=== PATIENT | female | born 1955 | race Caucasian/White ===

== ENCOUNTER 2017-05-21 12:53 | Emergency (ER) | payer BC ==
[2017-05-21] MEDS ORDERED: Rabies Immune Globulin 10 ML* 150 UNIT/ML VIAL IM ONE (13:59)
[2017-05-21] MEDS ORDERED: Rabies Vaccine, PCEC INJ* 1 ml IM ONE (14:07)
[2017-05-21 14:32] VITALS: BP 120/71
--- NOTE | 2017-05-21 14:32 | UC ---
Bite Injury/Animal HPI - HPI Summary HPI Summary: Found bat in bedroom 2 nights ago, did not catch it. No wounds or bites to pt's knowledge. here for rabies prophylaxis per [facility]. - History of Current Complaint Chief Complaint: UCGeneralIllness Stated Complaint: RABIES VACC Time Seen by Provider: 05/21/17 13:58 Hx Obtained From: Patient ?: No Severity Currently: None Pain Intensity: 0 Onset/Duration: Resolved Type of Bite: Wild Animal Has Animal Been Immunized?: N/A Aggravating Factor(s): Nothing Alleviating Factor(s): Nothing Associated Signs And Symptoms: Positive: Negative Animal Available for Observation: No Animal Control Notified: Yes - Allergies/Home Medications Allergies/Adverse Reactions: Allergies Allergy/AdvReac Type Severity Reaction Status Date / Time Iodinated Diagnostic Agents Allergy Intermediate Vomiting Verified 03/03/17 08: 38 Shellfish Allergy Allergy Intermediate Eyes Verified 03/03/17 08:38 Itchy/Swollen/Red/Watery PMH/Surg Hx/FS Hx/Imm Hx Endocrine History: Diabetes Other Cancer History: pancreatic - Surgical History Surgical History: Yes Surgery Procedure, Year, and Place: ERCP WITH STENTING 12/23/14 @ [facility] [place]. POWER PORT 02/2015 @ [facility] [place]. 10/29/2015 Melo CAMERON @ [facility]; Colonscopies 2X, polyps removal on the first colonoscopy done 03/2013 where patient experienced bleeding 18 days later, procedure done with a titanium clip which was removed. - Social History Alcohol Use: None Substance Use Type: None Smoking Status (MU): Never Smoked Tobacco Have You Smoked in the Last Year: No - Immunization History Most Recent Influenza Vaccination: 2013 Most Recent Tetanus Shot: 2011 Most Recent Pneumonia Vaccination: 2012 Review of Systems Constitutional: Negative Skin: Negative Eyes: Negative ENT: Negative Respiratory: Negative Cardiovascular: Negative Gastrointestinal: Negative Genitourinary: Negative Motor: Negative Neurovascular: Negative Musculoskeletal: Negative Neurological: Negative Psychological: Negative All Other Systems Reviewed And Are Negative: Yes Physical Exam Triage Information Reviewed: Yes Appearance: Well-Appearing, No Pain Distress, Well-Nourished Vital Signs: Initial Vital Signs Temp 97.6 F 05/21/17 12:59 Pulse 77 05/21/17 12:59 Resp 16 05/21/17 12:59 BP 129/67 05/21/17 12:59 Pulse Ox 99 08/04/17 12:59 Vital Signs Reviewed: Yes Eye Exam: Normal Eyes: Positive: Conjunctiva Clear ENT Exam: Normal ENT: Positive: Normal ENT inspection, Hearing grossly normal, Pharynx normal, TMs normal Dental Exam: Normal Neck exam: Normal Neck: Positive: Supple, Nontender, No Lymphadenopathy Respiratory Exam: Normal Respiratory: Positive: Chest non-tender, Lungs clear, Normal breath sounds, No respiratory distress, No accessory muscle use Cardiovascular Exam: Normal Cardiovascular: Positive: RRR, No Murmur Musculoskeletal Exam: Normal Neurological Exam: Normal Psychological Exam: Normal Bite Injury Course/Dx - Differential Dx/Diagnosis Provider Diagnoses: rabies exposure. rabies prophylaxis Discharge - Discharge Plan Condition: Stable Disposition: HOME Patient Education Materials: Rabies Vaccine (ED), Rabies (ED) Referrals: Aleksandra Decker MD [Primary Care Provider] - Additional Instructions: Please follow up with the [facility] Department for further rabies vaccines.
== END 2017-05-21 14:33 | disposition home or self-care (01) ==
LOC: UCEAST 12:53
DX: Z20.3 Contact with and (suspected) exposure to rabies (principal); Z23 Encounter for immunization; E11.9 Type 2 diabetes mellitus without complications; Z85.07 Personal history of malignant neoplasm of pancreas
CPT/HCPCS: 90375; 90471; 90675; 96372; 99211; G0463

== ENCOUNTER 2017-06-19 19:06 | Observation (INO) | payer BC ==
[2017-06-19] MEDS ORDERED: NS 0.9% 1000 ML* 1,000 ML IV ONE (19:36)
[2017-06-19] MEDS ORDERED: Metoclopramide IV* 5 MG/ML 2 ML VIAL IV ONE (19:36)
[2017-06-19 20:01] LABS: Hematocrit 34 % (35-47); Hemoglobin 11.7 g/dl (12.0-16.0); Mean Corpuscular HGB Conc 35 g/dl (31-36); Mean Corpuscular Hemoglobin 30 pg (27-31); Mean Corpuscular Volume 87 fL (80-97); Mean Platelet Volume 7 um3 (7.4-10.4); Red Blood Count 3.85 10^6/ul (4.0-5.4); Red Cell Distribution Width 16 % (10.5-15); White Blood Count 3.9 10^3/ul (3.5-10.8)
[2017-06-19 20:13] LABS: ALT 23 U/L (7-52); AST 21 U/L (13-39); Albumin 3.6 g/dL (3.2-5.2); Alkaline Phosphatase 53 U/L (34-104); Anion Gap 11 mmol/L (2-11); BUN/Creatinine Ratio 16.5 (8-20); Blood Urea Nitrogen 14 mg/dL (6-24); C Reactive Protein < 1.00 mg/L (< 5.00); CO2 Carbon Dioxide 25 mmol/L (22-32); Calcium 8.8 mg/dL (8.6-10.3); Chloride 95 mmol/L (101-111); EGFR African American 87.7 (>60); EGFR Non-African American 68.2 (>60); Globulin 2.7 g/dL (2-4); Glucose 210 mg/dL (70-100); Lipase < 10 U/L (11.0-82.0); Magnesium 1.5 mg/dL (1.9-2.7); Potassium 3.3 mmol/L (3.5-5.0); Sodium 131 mmol/L (133-145); Total Protein 6.3 g/dL (6.4-8.9)
--- NOTE | 2017-06-19 21:30 | ED ---
Bryan Mcduffie Rebecca, scribed for Boris Sheldon MD on 06/19/17 at 1935 . Complex/Multi-Sys Presentation - HPI Summary HPI Summary: Pt is a 61 y/o F who presents to ED c/o N/V. Nausea has been present all day with the vomiting beginning at 1400. Sx treated with Compazine, Zofran, Lorazepam and a Scopolamine patch ENTRY MANAGER, which have not changed sx. Additionally c /o chills. Denies fever. Pt is undergoing chemotherapy Tx for Pancreatic CA with the last treatment being on 06/16/2017. Oncologist is Dr. Dodge. Reports that she has had prior, similar reactions to chemo Tx. - History Of Current Complaint Chief Complaint: EDNauseaVomitDiarrh Time Seen by Provider: 06/19/17 19:24 Hx Obtained From: Patient Onset/Duration: Still Present Severity Currently: None Location: Negative Associated Signs And Symptoms: Positive: Nausea, Vomiting, Other - Chills. Negative: Fever Related History: Similar Episode/Diagnosed As: - Similar to previous reactions from chemotharpy - Allergies/Home Medications Allergies/Adverse Reactions: Allergies Allergy/AdvReac Type Severity Reaction Status Date / Time Iodinated Diagnostic Agents Allergy Intermediate Vomiting Verified 06/19/17 19: 21 Shellfish Allergy Allergy Intermediate Eyes Verified 06/19/17 19:21 Itchy/Swollen/Red/Watery PMH/Surg Hx/FS Hx/Imm Hx Endocrine/Hematology History: Reports: Hx Diabetes - type 1 Cardiovascular History: Reports: Other Cardiovascular Problems/Disorders - port for pancreatic cancer Denies: Hx Congestive Heart Failure, Hx Hypertension, Hx Pacemaker/ICD GI History: Reports: Hx Diverticulosis, Hx Gastroesophageal Reflux Disease, Hx Gastrointestinal Bleed, Hx Jaundice, Other GI Disorders - COLONOSCOPY 02/2013 WITH BENIGN GROWTHS REMOVED History: Denies: Hx Dialysis, Hx Renal Disease Musculoskeletal History: Denies: Hx Rheumatoid Arthritis, Hx Osteoporosis Sensory History: Reports: Hx Contacts or Glasses Denies: Hx Hearing Aid Opthamlomology History: Reports: Hx Contacts or Glasses Psychiatric History: Denies: Hx Panic Disorder - Cancer History Cancer Type, Location and Year: pancreatic 2015; Hx Chemotherapy: Yes - last 04/26/15 Hx Radiation Therapy: No - Surgical History Surgery Procedure, Year, and Place: [place] [facility] [place] [facility] [place] Melo CAMERON @ [facility]; Colonscopies 2X, polyps removal on the first colonoscopy done 03/2013 where patient experienced bleeding 18 days later, procedure done with a titanium clip which was removed. - Immunization History Date of Tetanus Vaccine: unknown Infectious Disease History: Denies: Hx Clostridium Difficile, Hx Hepatitis, Hx Human Immunodeficiency Virus (HIV), Hx of Known/Suspected MRSA, Hx Shingles, Hx Tuberculosis, Hx Known/ Suspected VRE, Hx Known/Suspected VRSA, History Other Infectious Disease, Traveled Outside the [place] in Last 30 Days - Family History Known Family History: Positive: Diabetes, Other - CHF - Social History Alcohol Use: None Substance Use Type: Reports: None Smoking Status (MU): Never Smoked Tobacco Have You Smoked in the Last Year: No Review of Systems Positive: Chills. Negative: Fever Positive: Vomiting, Nausea All Other Systems Reviewed And Are Negative: Yes Physical Exam Triage Information Reviewed: Yes Vital Signs On Initial Exam: Initial Vitals Temp Pulse Resp BP Pulse Ox 97.3 F 81 16 184/90 100 06/19/17 19:15 06/19/17 19:15 06/19/17 19:15 06/19/17 19:15 06/19/17 19:15 Vital Signs Reviewed: Yes Appearance: Positive: No Pain Distress, Ill-Appearing Skin: Positive: Warm Head/Face: Positive: Normal Head/Face Inspection Eyes: Positive: STELLA ENT: Positive: Hearing grossly normal Neck: Positive: Supple Respiratory/Lung Sounds: Positive: Clear to Auscultation, Breath Sounds Present Cardiovascular: Positive: RRR Abdomen Description: Positive: Nontender, Soft Bowel Sounds: Positive: Present Musculoskeletal: Positive: Strength/ROM Intact Neurological: Positive: Alert, Oriented to Person Place, Time Psychiatric: Positive: Affect/Mood Appropriate Diagnostics - Vital Signs Vital Signs Temp Pulse Resp BP Pulse Ox 06/19/17 19:15 97.3 F 81 16 184/90 100 - Laboratory Result Diagrams: 06/19/17 19:43 06/19/17 19:43 Lab Statement: Any lab studies that have been ordered have been reviewed, and results considered in the medical decision making process. Re-Evaluation - Re-Evaluation First Eval Re-Evaluation Time: 21:31 Change: Improved Comment: minimally improved but still with nausea and vomit, will admit, case d/ w hospitalist Complex Multi-Symp Course/Dx Assessment/Plan: Pt is a 61 y/o F who presents to ED c/o N/V. Nausea has been present all day with the vomiting beginning at 1400. Sx treated with Compazine, Zofran, Lorazepam and a Scopolamine patch ENTRY MANAGER, which have not changed sx. Additionally c/o chills. Denies fever. Pt is undergoing chemotherapy Tx for Pancreatic CA with the last treatment being on 06/16/2017. Oncologist is Dr. Dodge. Reports that she has had prior, similar reactions to chemo Tx. In the ED course, pt received magnesium sulfate, reglan and fluids. Discussed care of pt with Dr. Lim who accepts pt for admission. Pt will be admitted with Dx of intractable N/V with pancreatic CA. She understands and agrees. Elevated BP noted and advised to f/u with PCP. - Diagnoses Provider Diagnoses: intractable N/V , intractable N/V with pancreatic CA - Physician Notifications Discussed Care Of Patient With: Grupo Lim Time Discussed With Above Provider: 20:09 Instructed by Provider To: Admit As Inpatient - Accepts pt for admission. Discharge - Discharge Plan Condition: Fair Disposition: ADMITTED TO [facility] The documentation as recorded by the Bryan hopper Rebecca accurately reflects the service I personally performed and the decisions made by me, Boris Sheldon MD.
[2017-06-19] MEDS ORDERED: Magnesium Sulfate 1 GM IV* 1 GM/100 ML BAG IV ONE (21:32)
[2017-06-19] MEDS ORDERED: Magnesium Sulfate 2 GM IV* 2 GM/50 ML BAG IVPB ONE (22:35)
[2017-06-19] MEDS ORDERED: Metoclopramide IV* 5 MG/ML 2 ML VIAL IV SLOW PU PRN (22:37)
[2017-06-19] MEDS ORDERED: Ondansetron INJ* 2 MG/ML VIAL IV PRN (22:37)
[2017-06-19] MEDS ORDERED: LORazepam INJ* 2 MG/ML 1 ML VIAL IV PUSH PRN (22:38)
[2017-06-19] MEDS ORDERED: Enoxaparin(*) 40 MG/0.4 ML SYR SUBCUT SCH (23:00)
[2017-06-19] MEDS ORDERED: Dextrose 50% Syringe 50 ML* 25 GM/50 ML SYRINGE IV PUSH PRN (23:25)
[2017-06-19] MEDS ORDERED: Insulin GLARGINE(*) 1 UNITS UNIT SUBCUT SCH (23:45)
[2017-06-20] MEDS: Magnesium Oxide TAB* 400 MG PO SCH ×2 (00:55→08:22)
[2017-06-20] MEDS: amLODIPine TAB* 5 MG PO SCH ×2 (00:55→08:23)
[2017-06-20] MEDS: Insulin LISPRO* 1 UNITS UNIT SUBCUT SCH ×3 (01:32→12:04)
[2017-06-20] MEDS: NS 0.9% w/ 20 Meq KCL 1000 ML* 1,000 ML IV SCH ×2 (02:06→10:54)
[2017-06-20 02:20] LABS: Urine Bacteria Absent (Absent); Urine Bilirubin Negative (Negative); Urine Glucose 3+(>=500 mg/dL) (Negative); Urine Nitrite Negative (Negative)
--- NOTE | 2017-06-20 05:27 | HP ---
CC: Dr. Decker; Dr. Dodge ADMISSION HISTORY AND PHYSICAL: DATE OF ADMISSION: 06/19/17 CHIEF COMPLAINT: Vomiting. HISTORY OF PRESENT ILLNESS: Ms. Weaver is a 61-year-old woman with history of pancreatic cancer , who started her 4th cycle of chemotherapy on Wednesday through Wednesday of this week. She began vom iting around 2 p.m. this afternoon after having nausea all day. The patient took all of the antieme tics she had at home including Zofran and Ativan without success and presents [facility] the [facility] with intractable vomiting. The patient denies any abdominal pain or diarrhea. She denies any fever. She states she has had varying degrees of nausea and vomiting after other cycles of this ch emotherapy. The patient was initially diagnosed with pancreatic cancer in December 2014. She had neoadjuvant chemo therapy, followed by radiation in July 2015, followed by Whipple procedure in October of 2015. S he appeared to be in remission throughout 2016, but then admitted in 2016, has had a single metastas is found in her liver. She is now on the 4th cycle of chemotherapy, fosaprepitant along with 5-FU. PAST MEDICAL HISTORY: Includes hypertension, hyperlipidemia, type 2 diabetes, history of GI bleed a fter a colonoscopy, and pancreatic cancer as above. PAST SURGICAL HISTORY: Whipple procedure October 2015 and port placement in the subclavian. MEDICATIONS ON ADMISSION: 1. Lantus 20 units subcutaneous q. day. 2. NovoLog adjusted for carb counting q.a.c. 3. Lisinopril 40 mg p.o. q. day. 4. Toprol-XL 75 mg p.o. q. day. 5. Amlodipine 10 mg p.o. q. day. 6. Scopolamine patch as needed for nausea. 7. Aspirin 81 mg p.o. q. day. 8. Creon 2400 units a.c. as needed. 9. Magnesium oxide 250 mg p.o. b.i.d. 10. Potassium chloride 20 mEq p.o. b.i.d. ALLERGIES: CT CONTRAST and also SHELLFISH. FAMILY HISTORY: Notable for father of perforated ulcer. Brother of complications of diab etes potentially. Mother of heart disease. Sister of sudden , unknown cause. 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 She has no childre n. She has a healthcare proxy. She has a friend, Livier, with her today. Never smoked. No alcoho l or drug use. REVIEW OF SYSTEMS: The patient denies any fevers, but does have some anorexia. The patient denies a ny chest pain or palpitations. The patient denies any cough, no shortness of breath. Remainder of her 14-point review of systems is negative other than that mentioned in the HPI. PHYSICAL EXAMINATION GENERAL: She is a middle-aged woman, in no acute distress. VITAL SIGNS: Temperature is 36.9, pulse 87, respirations 18, blood pressure is 159/85, O2 sat is 95 %. HEENT: Head is normocephalic, atraumatic. She has alopecia. Pupils are equal, round, and reactive to light and accommodation. Oropharynx is moist, no lesions. NECK: No JVD. No carotid bruit. No thyromegaly. No cervical or axillary adenopathy. LUNGS: Clear to auscultation and percussion bilaterally. HEART: Regular rate and rhythm without murmurs or gallops. ABDOMEN: Soft, nontender. Positive bowel sounds. No hepatosplenomegaly. EXTREMITIES: No peripheral edema. Dorsalis pedis pulses are 1+ bilaterally. NEUROLOGIC: Cranial nerves II through XII are intact. Motor strength is 5/5 throughout. Deep ten don reflexes are symmetric. DIAGNOSTIC STUDIES/LAB DATA: Sodium 131, potassium 3.3, chloride 95, bicarb 25, BUN 14, creatinine 0.85, glucose 210, calcium 8.8, magnesium 1.5, albumin 3.6. AST 21, ALT 23, bilirubin 0.8. Lipase is less than 10. CRP less than 1. White count 3.9, hemoglobin 11.7, hematocrit 34%, platelets 215 . KUB and upright abdomen is normal. Nonobstructive bowel gas pattern. ASSESSMENT AND PLAN: A 61-year-old woman presenting with pancreatic cancer, on active chemotherapy, now with intractable vomiting. The patient will be admitted to observation overnight and treated with antiemetics and fluids. She can have pain control; she does not need at this time. We can discuss the case with Dr. Gamez in the morning. For diabetes, given that she is not taking p.o., I will give her half dose of her normal Lantus and give her small amounts of Humalog if needed. For hypertension, we will continue her outpatient regimen. She does not appear to be dangerously de hydrated. For her low potassium and magnesium, we will continue her oral supplements and give IV supplements a s well. Recheck this in the morning. Code status is full. DVT prophylaxis will be Lovenox. She is at a high risk due to her cancer and her age. [id number]/[facility] #: [id number]
[2017-06-20 06:22] LABS: Calcium 7.9 mg/dL (8.6-10.3); EGFR African American 101.4 (>60); EGFR Non-African American 78.8 (>60); Magnesium 2.7 mg/dL (1.9-2.7); Potassium 3.3 mmol/L (3.5-5.0)
--- NOTE | 2017-06-20 07:20 | RAD ---
INDICATION: Vomiting evaluate for obstruction. COMPARISON: Comparison is made with a prior KUB study from July 11, 2015 and a prior PET/CT study from March 29, 2017. TECHNIQUE: Supine and upright views of the abdomen were obtained. FINDINGS: The small bowel and colon appear nondistended. No free intraperitoneal air is seen. There is a moderate amount of retained stool present throughout the colon. There is a biliary stent catheter which projects in the right upper quadrant IMPRESSION: NO EVIDENCE FOR ACUTE FINDING.
[2017-06-20] MEDS ORDERED: KCL 20 MEQ/100 ML IVPREMIX* 20 MEQ/100 ML BAG IV ONE ×2 (07:25→08:21)
[2017-06-20] MEDS ORDERED: Lisinopril TAB* 10 MG PO SCH (09:00)
[2017-06-20] MEDS ORDERED: Potassium Chlor TAB* 20 MEQ TAB.ER PO SCH (09:00)
[2017-06-20] MEDS ORDERED: Metoprolol Succinate XL TAB* 25 MG PO SCH (09:00)
[2017-06-20] MEDS ORDERED: Aspirin EC Low Dose* 81 MG TAB.EC PO SCH (09:00)
--- NOTE | 2017-06-20 09:12 | DS ---
- Discharge Summary ADMIT DATE: 06/19/2017 DISCHARGE DATE: 06/20/2017 DISCHARGE DIAGNOSIS: 1. chemotherapy induced nausea and vomiting 2. hypokalemia related to above 3. recurrent pancreatic cancer DISCHARGE MEDS: Home Medications Medication Instructions Recorded Confirmed Type Lactobacillus [Probiotic] 1 cap PO DAILY 04/05/13 06/20/17 History Aspirin [Aspirin 81] 81 mg PO DAILY 03/29/14 06/20/17 History Lisinopril TAB* [Prinivil TAB 10 20 mg PO QAM 01/02/15 06/20/17 History MG*] Metoprolol Succinate XL TAB* 50 mg PO QAM 01/02/15 06/20/17 History [Toprol XL TAB*] amLODIPine TAB* [Norvasc 5 mg TAB*] 10 mg PO QAM 01/02/15 06/20/17 History Calcium + D3 600-200 mg-Unit 1 tab PO BID 12/16/15 06/20/17 History Creon (NF) 1 cap PO TID PRN 12/16/15 06/20/17 History Magnesium 250 mg PO DAILY 12/16/15 06/20/17 History Cholecalciferol [Vitamin D3] 1,000 unit PO BID 03/01/17 06/20/17 History Insulin Aspart [Novolog] 1 inj SUBCUT SEE INSTRUCTIONS 03/01/17 06/20/17 History Insulin GLARGINE(*) [Lantus(*)] 20 units SUBCUT QPM 03/01/17 06/20/17 History Metoprolol Succinate XL TAB* 25 mg PO BEDTIME 03/01/17 06/20/17 History [Toprol XL TAB*] Red Yeast Rice Extract [Red Yeast 800 mg PO DAILY 03/01/17 06/20/17 History Rice] LORazepam TAB(*) [Ativan 0.5 MG 1 tab PO Q6HR PRN 06/20/17 06/20/17 History TAB (*)] OLANzapine TAB* [Zyprexa 5 MG TAB*] 5 mg PO DAILY 06/20/17 06/20/17 History Ondansetron ODT TAB* [Zofran 4 MG 4 mg PO Q6H PRN 06/20/17 06/20/17 History Odt TAB*] Potassium Chlor TAB* [Potassium 20 meq PO BID tab.er 06/20/17 Rx Chlor TAB 20 MEQ*] Scopolamine 1.5 mg* PATCH* 1 patch TOPICAL Q72HR 06/20/17 06/20/17 History [Transderm-Scop 1.5 mg Patch*] INCREASED DOSE OF POTASSIUM DISCHARGE FOLLOW UP: 1. [facility] 06/22 1 pm hydration and labs 2. [facility] 06/25 at 12:20 Dr. Dodge HOSPITAL COURSE: see full admit h+P. vomiting resolved completely with hydration and iv antiemetics. tolerated breakfast well. will be discharged home to wednesday for hydration and electrolyte check at the [facility], and Dr. Dodge on Wednesday at 12:20 pm.
[2017-06-20] MEDS ORDERED: Loperamide CAP* 2 MG PO PRN (09:34)
[2017-06-20 12:04] VITALS: BP 94/55
== END 2017-06-20 13:10 | disposition home or self-care (01) ==
LOC: ED 19:06 → MED 22:34
PROVIDERS: ADMIT Internal Medicine; ATTEND Hospitalist
DX: R11.2 Nausea with vomiting, unspecified (principal); E87.6 Hypokalemia; C25.9 Malignant neoplasm of pancreas, unspecified; Z79.899 Other long term (current) drug therapy
CPT/HCPCS: 36415; 74020; 80048; 80053; 81003; 81015; 83036; 83605; 83690; 83735; 85025; 86140; 96361; 96365; 96366; 96372; 96375; 99217; 99284; A9270-GY; G0378; J1642; J1650; J2405; J2765; J3475; J3480

== ENCOUNTER 2018-05-21 08:00 | Emergency (ER) | payer BC ==
[2018-05-21] MEDS ORDERED: Ondansetron INJ* 2 MG/ML VIAL IV ONE (08:14)
[2018-05-21] MEDS ORDERED: NS 0.9% 1000 ML* 1,000 ML IV ONE ×2 (08:14→09:57)
[2018-05-21 08:57] LABS: ABS Basophils 0 10^3/ul (0-0.2); ABS Eosinophils 0 10^3/ul (0-0.6); ABS Monocytes 0.7 10^3/ul (0-0.8); ABS Nucleated RBC 0 10^3/ul; Eosinophil % 0 % (0-6); Hematocrit 35 % (35-47); Hemoglobin 11.5 g/dl (12.0-16.0); Lymphocyte % 6.5 % (25-47); Mean Corpuscular HGB Conc 33 g/dl (31-36); Mean Corpuscular Hemoglobin 24 pg (27-31); Mean Corpuscular Volume 74 fL (80-97); Mean Platelet Volume 7.6 um3 (7.4-10.4); Nucleated Red Blood Cells % 0; Platelet Count 261 10^3/ul (150-450); Red Blood Count 4.77 10^6/ul (4.00-5.40); Red Cell Distribution Width 19 % (10.5-15); White Blood Count 15.7 10^3/ul (3.5-10.8)
[2018-05-21 09:12] LABS: EGFR Non-African American 59.1 (>60)
--- NOTE | 2018-05-21 09:34 | ED ---
GI/ HPI - HPI Summary HPI Summary: This is scrartem Mccollum documenting for attending Donny Barnes MD. This patient is a 62 year old F presenting to [facility] with a chief complaint of N/ V/D since 05/18/18. The diarrhea began 05/18/2018 and vomiting began 2017. The patient took Imodium which alleviated the diarrhea. Patient also reports fatigue, loss of appetite, and dehydration. Patient denies being around others who are sick and trouble urinating. She is a pancreas cancer patient and has metastasis in her liver. She is on insulin for Type 2 diabetes. Patient had a Whipple procedure done on 10/29/2015. She last had chemotherapy 4 months ago. Her oncologist is Andreas Dodge MD. She last had a CT 2 weeks ago. - History of Current Complaint Chief Complaint: EDNauseaVomitDiarrh Time Seen by Provider: 05/21/18 08:13 Stated Complaint: POSSIBLE DEHYDRATION Hx Obtained From: Patient Onset/Duration: Started Days Ago - since 05/18/2018, Still Present Pain Intensity: 0 Associated Signs and Symptoms: Positive: Nausea, Vomiting, Diarrhea, Change in Appetite - loss of appetite, dehydration, denies being around others who are sick, denies trouble urinating, Other: - fatigue - Additional Pertinent History Primary Care Physician: [id number] - Allergy/Home Medications Allergies/Adverse Reactions: Allergies Allergy/AdvReac Type Severity Reaction Status Date / Time Iodinated Contrast- Oral and Allergy Intermediate Vomiting Verified 05/21/18 08: 16 IV Dye shellfish derived Allergy Intermediate Eyes Verified 05/21/18 08:16 Itchy/Swollen/Red/Watery PMH/Surg Hx/FS Hx/Imm Hx Endocrine/Hematology History: Reports: Hx Blood Transfusions, Hx Diabetes - type 1 Cardiovascular History: Reports: Hx Hypertension, Other Cardiovascular Problems/ Disorders - port for pancreatic cancer Denies: Hx Congestive Heart Failure, Hx Pacemaker/ICD Respiratory History: Denies: Hx Asthma GI History: Reports: Hx Diverticulosis, Hx Gastroesophageal Reflux Disease, Hx Gastrointestinal Bleed, Hx Hiatal Hernia, Hx Jaundice, Other GI Disorders - COLONOSCOPY 02/2013 WITH BENIGN GROWTHS REMOVED History: Denies: Hx Dialysis, Hx Renal Disease Musculoskeletal History: Denies: Hx Rheumatoid Arthritis, Hx Osteoporosis Sensory History: Reports: Hx Cataracts, Hx Contacts or Glasses Denies: Hx Hearing Aid Opthamlomology History: Reports: Hx Cataracts, Hx Contacts or Glasses Psychiatric History: Reports: Hx Anxiety, Hx Depression Denies: Hx Panic Disorder - Cancer History Cancer Type, Location and Year: pancreatic 2014. secondary liver CA Hx Chemotherapy: Yes - CHEMO TREATMENT ENDED IN JANUARY 2018 Hx Radiation Therapy: Yes - 2016 - Surgical History Surgery Procedure, Year, and Place: ERCP WITH STENTING 12/23/14 @ [facility]. POWER PORT 02/2015 @ [facility]. 10/29/2015 Melo CAMERON @ [facility]; Colonscopies 2X, polyps removal on the first colonoscopy done 03/2013 where patient experienced bleeding 18 days later, procedure done with a titanium clip. 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 Midline surgical scar Head/face: normal Eyes: EOMI, STELLA ENT: normal Neck: supple, non-tender Respiratory: CTA, breath sounds present Cardiovascular: RRR, pulses symmetrical. Port-A-Cath in R chest Abdomen: non-tender, soft Bowel Sounds: present Musculoskeletal: normal, strength/ROM intact Neuro: normal, sensory motor intact, A&Ox3 Triage Information Reviewed: Yes Vital Signs On Initial Exam: Initial Vitals Temp Pulse Resp BP Pulse Ox 97.6 F 90 16 170/103 99 08/04/18 08:05 05/21/18 08:05 05/21/18 08:05 05/21/18 08:05 05/21/18 08:05 Vital Signs Reviewed: Yes Diagnostics - Vital Signs Vital Signs Temp Pulse Resp BP Pulse Ox 05/21/18 08:05 97.6 F 90 16 170/103 99 - Laboratory Lab Results: Lab Results 05/21/18 05/21/18 05/21/18 Range/Units 08:45 08:45 08:45 WBC 15.7 H (3.5-10.8) 10^3/ul RBC 4.77 (4.00-5.40) 10^6/ul Hgb 11.5 L (12.0-16.0) g/dl Hct 35 (35-47) % MCV 74 L (80-97) fL MCH 24 L (27-31) pg MCHC 33 (31-36) g/dl RDW 19 H (10.5-15) % Plt Count 261 (150-450) 10^3/ul MPV 7.6 (7.4-10.4) um3 Neut % (Auto) 88.8 H (38-83) % Lymph % (Auto) 6.5 L (25-47) % Reeves % (Auto) 4.5 (0-7) % Eos % (Auto) 0 (0-6) % Baso % (Auto) 0.2 (0-2) % Absolute Neuts (auto) 14.0 H (1.5-7.7) 10^3/ul Absolute Lymphs (auto) 1.0 (1.0-4.8) 10^3/ul Absolute Monos (auto) 0.7 (0-0.8) 10^3/ul Absolute Eos (auto) 0 (0-0.6) 10^3/ul Absolute Basos (auto) 0 (0-0.2) 10^3/ul Absolute Nucleated RBC 0 10^3/ul Nucleated RBC % 0 Sodium 132 L (135-145) mmol/L Potassium 3.5 (3.5-5.0) mmol/L Chloride 95 L (101-111) mmol/L Carbon Dioxide 27 (22-32) mmol/L Anion Gap 10 (2-11) mmol/L BUN 23 (6-24) mg/dL Creatinine 0.96 H (0.51-0.95) mg/dL Est GFR ( Amer) 71.5 (>60) Est GFR (Non-Af Amer) 59.1 (>60) BUN/Creatinine Ratio 24.0 H (8-20) Glucose 243 H (70-100) mg/dL Lactic Acid 1.6 (0.5-2.0) mmol/L Calcium 9.4 (8.6-10.3) mg/dL Total Bilirubin 0.90 (0.2-1.0) mg/dL AST 22 (13-39) U/L ALT 32 (7-52) U/L Alkaline Phosphatase 97 (34-104) U/L C-Reactive Protein 1.91 (<8.01) mg/L Total Protein 7.6 (6.4-8.9) g/dL Albumin 4.0 (3.2-5.2) g/dL Globulin 3.6 (2-4) g/dL Albumin/Globulin Ratio 1.1 (1-3) Lipase < 10 L (11.0-82.0) U/L Result Diagrams: 05/21/18 08:45 05/21/18 08:45 Lab Statement: Any lab studies that have been ordered have been reviewed, and results considered in the medical decision making process. Re-Evaluation - Re-Evaluation 1 Re-Evaluation Time: 09:02 Change: Improved Comment: Patient feels much better. GIGU Course/Dx - Course Course Of Treatment: Patient is undergoing chemotherapy for pancreatic cancer. She states that she often has to present to the oncology center for IV fluids and she feels like this. She has had nausea and diarrhea. She has no real pain at this point. She felt much better after IV fluids. White count was slightly elevated but there is no fever. She'll follow closely with her oncologist. - Diagnoses Differential Diagnoses - Female: Other - Sepsis, gastroenteritis, pancreatitis, abscess, chemotherapeutically induced symptoms Provider Diagnoses: Gastroenteritis, Chemotherapy adverse reaction, Pancreatic cancer, Hyperglycemia due to type 2 diabetes mellitus Discharge - Sign-Out/Discharge Documenting (check all that apply): Patient Departure - D/C - Discharge Plan Condition: Improved Disposition: HOME Patient Education Materials: Gastroenteritis (ED) Referrals: Andreas Dodge MD [Medical Doctor] - Aleksandra Decker MD [Primary Care Provider] - Additional Instructions: Stay well-hydrated. [place] diet as tolerated. Return with abdominal pain, fever , weakness, persistent diarrhea, worse or other concerns as discussed. - Billing Disposition and Condition Condition: IMPROVED Disposition: Home
[2018-05-21 11:49] VITALS: BP 161/98
== END 2018-05-21 11:47 | disposition home or self-care (01) ==
LOC: ED 08:00
DX: K52.1 Toxic gastroenteritis and colitis (principal); T45.1X5A Adverse effect of antineoplastic and immunosuppressive drugs, initial encounter; Y92.9 Unspecified place or not applicable; C25.9 Malignant neoplasm of pancreas, unspecified; C78.7 Secondary malignant neoplasm of liver and intrahepatic bile duct; Z92.21 Personal history of antineoplastic chemotherapy; Z92.3 Personal history of irradiation; E11.65 Type 2 diabetes mellitus with hyperglycemia; Z79.4 Long term (current) use of insulin; Z91.041 Radiographic dye allergy status
CPT/HCPCS: 36415; 80053; 83605; 83690; 85025; 86140; 96361; 96374; 99282; J2405

== ENCOUNTER 2018-06-24 12:45 | Inpatient (IN) | payer BC ==
[2018-06-24] MEDS ORDERED: Morphine INJ* 2 MG/ML 1 ML SYRINGE (TWO MG - NEW SYRINGE VERSION) IV PRN (16:27)
[2018-06-24] MEDS ORDERED: Metoprolol Tartrate IV* 1 MG/ML 5 ML VIAL IV PRN (16:33)
[2018-06-24] MEDS: Ondansetron INJ* 2 MG/ML VIAL IV SCH ×3 (17:05→23:29)
[2018-06-24] MEDS ORDERED: hydrALAZINE IV* 20 MG/ML VIAL IV SLOW PU PRN (18:50)
[2018-06-24] MEDS ORDERED: Dextrose 50% Syringe 50 ML* 25 GM/50 ML SYRINGE IV PUSH PRN (18:51)
[2018-06-24] MEDS: Insulin GLARGINE(*) 1 UNITS UNIT SUBCUT SCH (20:51)
[2018-06-24] MEDS: methylPREDNISolone SOD 40 MG* 1 ML VIAL IV SCH (20:51)
[2018-06-24] MEDS: Insulin LISPRO* 1 UNITS UNIT SUBCUT SCH (23:29)
[2018-06-25] MEDS: methylPREDNISolone SOD 40 MG* 1 ML VIAL IV SCH ×2 (02:24→08:06)
[2018-06-25] MEDS: Ondansetron INJ* 2 MG/ML VIAL IV SCH ×5 (05:38→20:54)
[2018-06-25] MEDS ORDERED: Iodixanol* (CONTRAST) 320 MG/ML 100 ML SDV IV ONE (07:02)
[2018-06-25] MEDS ORDERED: Iodixanol* (CONTRAST) 320 MG/ML 100 ML SDV IV SCH (07:15)
[2018-06-25] MEDS ORDERED: diPHENhydraMINE IV* 50 MG/ML 1 ml VIAL (BENADRYL) IV ONE (08:00)
[2018-06-25] MEDS: Insulin LISPRO* 1 UNITS UNIT SUBCUT SCH ×4 (09:02→20:57)
[2018-06-25] MEDS ORDERED: CREON PO PRN (09:47)
[2018-06-25] MEDS: NS 0.9% 1000 ML* 1,000 ML IV SCH ×2 (09:49→19:38)
--- NOTE | 2018-06-25 10:44 | RAD ---
Indication: Pancreatic cancer with increased nausea. Contrast: Administered 88.2 ml of VISIPAQUE 320 mg/ml CT of the abdomen and pelvis was performed after oral and IV contrast administration. Coronal and sagittal reconstructed images were obtained. Comparison is made previous exam dated May 09, 2018. Lung bases demonstrate no pleural fluid, nodules or masses. Heart is of normal size without evidence of pericardial effusion. Liver is normal in size. There is intrahepatic ductal air noted. Biliary stent is in place. There is a lobulated low density mass in the inferior tip of the right lobe of liver measuring up to 3.4 cm which has increased in size since previous exam and is consistent with a metastatic focus. Patient status post Whipple's procedure. The visualized pancreas is otherwise unremarkable. The spleen is normal in size. No adrenal lesions are noted. The kidneys demonstrate symmetric nephrograms without focal lesions. The retroperitoneal lymphadenopathy is noted. CT of the pelvis demonstrates no dilated loops of bowel. Fibroids are noted in the uterus. No pelvic adenopathy is noted. Aorta demonstrates no aneurysmal dilatation. The bladder is unremarkable. There is an anterior abdominal wall hernia containing small bowel and colon. This is unchanged from previous exam. No evidence of bowel obstruction The bony structures demonstrate endplate changes at L4-L5 with grade 1 spondylolisthesis. Mild compression of L3 is noted. This is unchanged from previous exam. IMPRESSION: Right lobe hepatic lesion appears to be increasing in size when compared to previous exam. This is consistent with enlarging metastatic focus. Pneumobilia is noted. No evidence of abnormal adenopathy is noted. Postoperative changes are noted. Anterior abdominal wall hernia containing colon and small bowel.
[2018-06-25] MEDS: Metoprolol Succinate XL TAB* 25 MG PO SCH ×2 (11:19→20:56)
[2018-06-25] MEDS: amLODIPine TAB* 5 MG PO SCH (11:19)
[2018-06-25] MEDS ORDERED: PROCHLORPERAZINE INJ 5 MG/ML 2 ML VIAL IV PRN (12:41)
[2018-06-25] MEDS: Sucralfate SUSP 1 GM/10 ml 10 ML UDC PO SCH (16:53)
[2018-06-25] MEDS: Pantoprazole IV* 40 MG IV SCH (20:54)
[2018-06-25] MEDS: Insulin GLARGINE(*) 1 UNITS UNIT SUBCUT SCH (20:57)
[2018-06-26] MEDS: Ondansetron INJ* 2 MG/ML VIAL IV SCH ×3 (04:22→08:02)
[2018-06-26] MEDS: NS 0.9% 1000 ML* 1,000 ML IV SCH (05:27)
[2018-06-26 06:02] LABS: ABS Basophils 0 10^3/ul (0-0.2); ABS Eosinophils 0 10^3/ul (0-0.6); ABS Lymphocytes 1.7 10^3/ul (1.0-4.8); ABS Monocytes 0.7 10^3/ul (0-0.8); ABS Neutrophils 10.9 10^3/ul (1.5-7.7); ABS Nucleated RBC 0 10^3/ul; Eosinophil % 0.1 % (0-6); Hematocrit 31 % (35-47); Hemoglobin 10.4 g/dl (12.0-16.0); Lymphocyte % 12.8 % (25-47); Mean Corpuscular HGB Conc 34 g/dl (31-36); Mean Corpuscular Hemoglobin 26 pg (27-31); Mean Corpuscular Volume 77 fL (80-97); Mean Platelet Volume 7.5 um3 (7.4-10.4); Nucleated Red Blood Cells % 0; Platelet Count 245 10^3/ul (150-450); Red Blood Count 3.99 10^6/ul (4.00-5.40); Red Cell Distribution Width 18 % (10.5-15); White Blood Count 13.3 10^3/ul (3.5-10.8)
[2018-06-26 06:23] LABS: EGFR Non-African American 58.4 (>60)
[2018-06-26] MEDS: Insulin LISPRO* 1 UNITS UNIT SUBCUT SCH (07:49)
[2018-06-26] MEDS: Sucralfate SUSP 1 GM/10 ml 10 ML UDC PO SCH (07:49)
[2018-06-26] MEDS: amLODIPine TAB* 5 MG PO SCH (08:02)
[2018-06-26] MEDS: Metoprolol Succinate XL TAB* 25 MG PO SCH (08:02)
[2018-06-26] MEDS: Pantoprazole IV* 40 MG IV SCH (08:03)
[2018-06-26 08:35] VITALS: BP 148/80
[2018-06-26] MEDS ORDERED: Lisinopril TAB* 10 MG PO SCH (09:00)
[2018-06-26] MEDS ORDERED: Aspirin EC TAB* 81 MG TAB.EC PO SCH (09:00)
[2018-06-26] MEDS ORDERED: Citalopram TAB* 10 MG PO SCH (09:00)
--- NOTE | 2018-06-26 10:35 | PN ---
Progress Note - Progress Note Date of Service: 06/25/18 SOAP: Subjective: [[place] better overnight. More nauseated this am after trying some clear liquids. No diarrhea or abdominal pain. Reports burning sensation in stomach/ chest for the last couple of weeks and has been using OTC antacids] Objective: [Exam: Gen: mildly ill and very pleasant 62 yo female in NAD HEENT: MM mildly dry CV:RRR, no m/r/g Resp: lungs CTA Abd: soft nonTTP Ext: no edema] Assessment: [62 yo female with pancreatic CA with solitary liver lesion who was admitted with intractable n/v.] Plan: [1. Intractable n/v - reviewed CT A/P - shows interval increase in liver lesion (2.8 to 3.5cm in size), but no signs of obstruction or new lesions noted - not clear that POD is responsible for current symptoms - gastritis/esophagitis seems more likely - cont IV fluids - start IV PPI and sucralfate - advance diet as tolerated 2. Pancreatic CA - not on current therapy - considering local therapy to solitary liver lesion such as XRT v RFA - will discuss further with Dr Dodge]
--- NOTE | 2018-06-26 23:10 | DS ---
CC: Dr. Decker * DISCHARGE SUMMARY: DATE OF ADMISSION: 06/24/18 DATE OF DISCHARGE: 06/26/18 PRIMARY CARE PROVIDER: Dr. Decker. PRIMARY ONCOLOGIST AND ATTENDING PHYSICIAN: Andreas Dodge MD* (DICTATED BY KERVIN JOHNSON) DISCHARGING PROVIDER: KERVIN Johnson PRIMARY DISCHARGE DIAGNOSES: 1. Intractable nausea and vomiting, likely secondary to gastritis/esophagitis. 2. Recurrent metastatic pancreatic cancer with single lesion in the liver. 3. Hypertension. 4. Insulin dependent diabetes. DISCHARGE MEDICATIONS: 1. Amlodipine 10 mg p.o. daily. 2. Aspirin 81 mg p.o. daily. 3. Calcium and vitamin D 1 tablet p.o. twice daily. 4. Celexa 10 mg p.o. daily. 5. Vitamin D3 of 1000 units p.o. twice daily. 6. Creon 1 capsule p.o. 3 times daily. 7. NovoLog on a sliding scale with meals. 8. Lactobacillus 1 capsule p.o. daily. 9. Lantus 20 units subcu at bedtime. 10. Lisinopril 20 mg p.o. daily. 11. Meclizine 12.5 mg p.o. twice daily. 12. Metoprolol succinate 25 mg p.o. twice daily. 13. Red yeast rice 800 mg p.o. daily. 14. Omeprazole 20 mg p.o. twice daily. 15. Ondansetron 4 mg p.o. q.6 hours as needed for nausea. 16. Sucralfate 1 g p.o. with meals. Medication changes: 1. Start omeprazole. 2. Start sucralfate. HOSPITAL IMAGING: CT abdomen and pelvis shows a right lobe hepatic lesion, which appears to have increased in size when compared to prior exam. This is consistent with enlarging metastatic focus. Pneumobilia is noted and extensive postoperative changes. Metastatic focus measures approximately 3.4 cm on this exam. HOSPITAL COURSE: This is a 62-year-old female with history of pancreatic cancer status post Whipple procedure with a relatively recent diagnosis of recurrent disease with metastatic focus of the liver. She is not currently on any systemic therapy and had been in discussion of radiation therapy versus radiofrequency ablation of single metastatic focus in the liver. The patient presented to medical oncology office; however, with complaints of intractable nausea and vomiting. She had been unable to tolerate anything by mouth including her usual antihypertensive medications for at least 2 days prior to admission. She was found to be dehydrated with hyponatremia and hypokalemia as well as severely hypertensive and the patient was referred for hospitalization. CT of the abdomen and pelvis was performed which showed enlarging metastatic focus of the liver, now measuring 3.4 cm in diameter, prior exam from approximately 6 weeks ago was approximately 2.8 cm in size. No obvious evidence of obstruction on CT. Total bilirubin and transaminases were unremarkable. The patient received supportive care measures including IV hydration and antiemetics. The patient was afebrile and did have mild leukocytosis. No associated diarrhea or other infectious symptoms. She did note that a couple of weeks prior, she had had what was diagnosed as a viral gastroenteritis that resulted in nausea, vomiting and diarrhea and symptoms were self limited. Since that time, she has had increased burning sensation in her chest and abdomen for which she was using [id number] antacids. The patient was subsequently started on an IV PPI as well as sucralfate with significant improvement in her symptoms. DISPOSITION AND FOLLOWUP PLAN: The patient is being discharged to home. She will be started on proton pump inhibitor and sucralfate as listed above. No signs of biliary obstruction being the cause of her presenting symptoms. She requires additional followup with Oncology to address enlarging liver lesion. She can follow up with Dr. Dodge in 1 to 2 weeks to continue discussion of possible focal therapy to the metastatic lesion. The patient's blood pressure and glucose were adequately controlled at the time of discharge. KERVIN JOHNSON [id number]/[facility] #: [id number] [facility] HOSPITALMicky
--- NOTE | 2018-08-04 04:15 | HP ---
ADMISSION HISTORY AND PHYSICAL: DATE OF ADMISSION: 06/24/18 REASON FOR ADMISSION: Abdominal pain, nausea and vomiting in the setting with metastatic pancreatic carcinoma. HISTORY OF PRESENT ILLNESS: Milvia Weaver is a 62-year-old female with a history of pancreatic carcinoma diagnosed in early 2014. Details of her treatment since that are outlined below. Over the past month, she has had intermittent episodes of nausea and vomiting along with at times uncontrolled projectile vomiting. At this time, she is feeling much worse and has more in the way of nausea and vomiting along with abdominal pain, inability to keep any liquids or solids down over the past 48 hours. She was seen in the office, given extra hydration and also extra electrolyte solutions. Plain film of the abdomen was obtained and does not reveal small bowel obstruction. CT scan was also obtained on the day of admission and showed some progression of solitary known liver metastasis, but no other signs of metastatic carcinoma, any adenopathy or any small bowel obstruction. She is unable to keep adequate liquids such to be able to go home and decision was made to admit her to the hospital for further IV hydration, antiemetics, and potential further workup. PAST MEDICAL HISTORY: In December of 2014, jaundice. CT scan with obstructive biliary process at the level of the crystal common bile duct with a prominent pancreatic adenopathy up to 1.2 cm. ERCP with sphincterotomy and improved symptoms and LFT cytology was suspicious but there was no definite mass in the head of the pancreas. Initial visit to our office 01/08/15, referred to [facility]. Pathology was reviewed there and felt to be malignant without further biopsy. Elevated CA 19-9 and bilirubin back to normal. She was felt to have borderline resectable pancreatic carcinoma with recommendation for neoadjuvant chemotherapy. Repeat CT scan the following month revealed a mass now seen in the pancreatic head along with potential lung metastasis which later turned out to be just granuloma. She was seen in consultation at [facility] and started on FOLFIRINOX chemotherapy. This was tolerated well with significant improvement and CA 19-9 as well as improvement in the mass on the CT scan. Subsequent to this, she received IMRT and then went on to have a resection. Surgery was on 10/29/14 with 2.5 cm residual pancreatic carcinoma, negative margins and lymph node negative. She had significant postoperative complications with wound healing issues. Subsequent to this, she remained off chemotherapy until February of 2017 when was found to have rising CA 19-9. No lesion in the right lobe of the liver. Biopsy confirmed this to be metastatic carcinoma. She was treated with 7 cycles of FOLFOX. After multiple cycles, this remained solitary. She was seen at multiple institutions with questions of whether not to have localized therapy to the liver. There was one question of the second lesion on PET scan, which turned out never to be reproducible. She tolerated the FOLFOX reasonably well and stopped therapy in December of 2017, has been seen at multiple institutions and there was consideration at this time for SBRT to the solitary liver lesion, which has been growing but remain localized. Past medical history otherwise significant for previous GI bleed, diabetes diagnosed in 2011, GERD, hypercholesterolemia, hypertension. MEDICATIONS: 1. Amlodipine 10 mg daily. 2. Aspirin 81 mg daily. 3. Calcium with vitamin D. 4. Carafate 1 g t.i.d. 5. Celexa 10 mg daily. 6. Cholecalciferol. 7. Creon 1 tablet before meals p.r.n. 8. Lomotil p.r.n. 9. Lantus insulin 20 units subcutaneously at bedtime. 10. Lisinopril 20 mg daily. 11. Imodium p.r.n. 12. Meclizine 12.5 mg b.i.d. p.r.n. 13. Metoprolol 25 mg b.i.d. 14. NovoLog insulin as directed. 15. Omeprazole 40 mg daily. 16. Zofran 4 mg q.8 hours p.r.n. nausea. FAMILY HISTORY: Noncontributory. SOCIAL HISTORY: The patient is single, has never been . No significant alcohol or tobacco. 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 REVIEW OF SYSTEMS: Energy level has been somewhat down recently, but still reasonable. No significant change in weight. Appetite is fair given the nausea and vomiting. No significant change in bowel habits other than some diarrhea. No significant shortness of breath, chest pain, or palpitation. No significant swelling or edema. PHYSICAL EXAMINATION VITAL SIGNS: Stable, afebrile. HEENT: PERRL. EOMI. No erythema or exudates. NECK: No palpable cervical, supraclavicular, or axillary adenopathy. LUNGS: Clear. HEART: Regular rate and rhythm without murmurs, rubs, or gallops. ABDOMEN: Soft. No significant masses. Mild tenderness especially in the right upper quadrant. EXTREMITIES: No clubbing, cyanosis, or edema. BACK: No CVA or spinal tenderness. LABORATORY STUDIES: Revealed normal liver function tests. No significant abnormalities were otherwise noted. IMPRESSION: Ongoing nausea and vomiting. No obvious small bowel obstruction. The patient require extra hydration at this time. Bowel will be somewhat at rest. We will continue to follow the patient in the hospital and decide on further studies if needed. CT scan of the abdomen has already been obtained on the day of admission. [id number]/[facility] #: [id number] MTDD
== END 2018-06-26 11:45 | disposition home or self-care (01) | DRG 241 ==
LOC: MED 12:45 → OBSVTOIN 06-25 12:45
PROVIDERS: ADMIT Internal Medicine Hematology & Oncology; ATTEND Internal Medicine Hematology & Oncology
DX: K29.70 Gastritis, unspecified, without bleeding (principal); C25.9 Malignant neoplasm of pancreas, unspecified; C78.7 Secondary malignant neoplasm of liver and intrahepatic bile duct; E87.1 Hypo-osmolality and hyponatremia; K20.9 Esophagitis, unspecified; R11.2 Nausea with vomiting, unspecified; I10 Essential (primary) hypertension; E11.9 Type 2 diabetes mellitus without complications; E86.0 Dehydration; E87.6 Hypokalemia; K21.9 Gastro-esophageal reflux disease without esophagitis; E78.00 Pure hypercholesterolemia, unspecified; Z79.4 Long term (current) use of insulin; Z79.82 Long term (current) use of aspirin; Z79.899 Other long term (current) drug therapy
CPT/HCPCS: 36415; 36591; 74018; 74177; 80053; 83735; 85025; 96365; 96366; 96367; 96375; 99213; 99220; 99232; 99239; A9270-GY; G0378; G0463; J0360; J0780; J1200; J1642; J2405; J2920; J3475; J3480; J3490; Q9967

== ENCOUNTER 2018-07-13 14:58 | Observation (INO) | payer BC ==
[2018-07-13] MEDS ORDERED: LORazepam INJ* 2 MG/ML 1 ML VIAL IV PUSH PRN (15:06)
[2018-07-13] MEDS ORDERED: CREON PO PRN (15:15)
[2018-07-13] MEDS ORDERED: Ondansetron ODT TAB* 4 MG PO PRN (15:15)
[2018-07-13] MEDS ORDERED: Dexamethasone IV* 8 MG in NS 0.9% 50 ML* 50 ML IVPB ONE (15:39)
[2018-07-13] MEDS ORDERED: Ondansetron INJ* 2 MG/ML VIAL IV PRN (15:39)
[2018-07-13] MEDS ORDERED: Enoxaparin(*) 40 MG/0.4 ML SYR SUBCUT SCH (16:00)
[2018-07-13] MEDS ORDERED: NS 0.9% w/ 40 Meq KCL 1000 ML* 1,000 ML IV SCH (16:00)
[2018-07-13] MEDS ORDERED: Insulin ASPART (NF) 1 UNIT SUBCUT SCH (16:00)
[2018-07-13] MEDS: Insulin REGULAR(*) 1 UNITS UNIT SUBCUT SCH (17:53)
[2018-07-13] MEDS: Metoprolol Tartrate TAB* 25 MG PO SCH (20:52)
[2018-07-13] MEDS ORDERED: Insulin GLARGINE(*) 1 UNITS UNIT SUBCUT SCH ×2 (21:00→22:00)
[2018-07-14 06:04] LABS: ABS Basophils 0 10^3/ul (0-0.2); ABS Eosinophils 0 10^3/ul (0-0.6); ABS Lymphocytes 0.9 10^3/ul (1.0-4.8); ABS Monocytes 0.2 10^3/ul (0-0.8); ABS Nucleated RBC 0 10^3/ul; Eosinophil % 0.1 % (0-6); Hematocrit 31 % (35-47); Hemoglobin 10.1 g/dl (12.0-16.0); Lymphocyte % 8.2 % (25-47); Mean Corpuscular HGB Conc 33 g/dl (31-36); Mean Corpuscular Hemoglobin 26 pg (27-31); Mean Corpuscular Volume 79 fL (80-97); Mean Platelet Volume 7.8 um3 (7.4-10.4); Nucleated Red Blood Cells % 0; Platelet Count 174 10^3/ul (150-450); Red Blood Count 3.97 10^6/ul (4.00-5.40); Red Cell Distribution Width 17 % (10.5-15); White Blood Count 11.1 10^3/ul (3.5-10.8)
[2018-07-14 07:36] VITALS: BP 131/63
[2018-07-14] MEDS: Insulin REGULAR(*) 1 UNITS UNIT SUBCUT SCH (07:45)
[2018-07-14] MEDS ORDERED: amLODIPine TAB* 5 MG PO SCH (09:00)
[2018-07-14] MEDS ORDERED: Citalopram TAB* 10 MG PO SCH (09:00)
[2018-07-14] MEDS ORDERED: Lisinopril TAB* 10 MG PO SCH (09:00)
[2018-07-14] MEDS: Metoprolol Tartrate TAB* 25 MG PO SCH (09:34)
--- NOTE | 2018-07-15 00:17 | DS ---
CC: Dr. Aiken; Dr. Decker * DISCHARGE SUMMARY: DATE OF ADMISSION: 07/13/18 DATE OF DISCHARGE: 07/14/18 PRIMARY CARE PROVIDER: Dr. Decker. ATTENDING PHYSICIAN AND PRIMARY ONCOLOGIST: Andreas Dodge MD * (DICTATED BY KERVIN JOHNSON) DISCHARGING PROVIDER: KERVIN Johnson PRIMARY DISCHARGE DIAGNOSES: 1. Intractable nausea and vomiting, likely secondary to gastritis with hypokalemia and hypomagnesemia secondary to acute gastrointestinal loss. 2. Recurrent metastatic pancreatic cancer with a solitary liver lesion with plans for SBRT. SECONDARY DISCHARGE DIAGNOSES: 1. Insulin-dependent diabetes. 2. Hypertension. DISCHARGE MEDICATIONS: 1. Amlodipine 5 mg p.o. daily. 2. Aspirin 81 mg p.o. daily. 3. Celexa 10 mg p.o. daily. 4. Vitamin D 1000 units p.o. twice daily. 5. Creon 1 capsule p.o. 3 times daily. 6. NovoLog on a sliding scale with meals. 7. Lactobacillus 1 capsule p.o. daily. 8. Lantus 1 unit subcu daily. 9. Lisinopril 20 mg p.o. daily. 10. Meclizine 12.5 mg p.o. twice daily as needed. 11. Metoprolol tartrate 25 mg p.o. twice daily. 12. Omeprazole 20 mg p.o. daily. 13. Ondansetron 4 mg p.o. q. 6 hours as needed for nausea and vomiting. Medication changes: Resume omeprazole. HOSPITAL IMAGING: None. HOSPITAL COURSE: This is a very pleasant 62-year-old female with insulin- dependent diabetes, hypertension, recurrent metastatic pancreatic cancer, currently with a solitary liver lesion with plans for SBRT pending further imaging evaluation who presented with intractable nausea and vomiting. The patient started feeling mildly ill shortly after eating dinner and then began with multiple bouts of vomiting, which she attempted to control with sublingual Zofran, but unfortunately was unsuccessful. She presented to Medical Oncology Clinic with significant hypokalemia and hypomagnesemia with initial potassium of 2.5 and magnesium of 1.4. She received fluid resuscitation and electrolytes repletion with antiemetics and noted significant improvement in her symptoms and she was able to tolerate oral intake prior to discharge. The patient had a similar episode about 3 weeks ago that sounded very consistent with gastritis, she was started on Sucralfate and omeprazole twice daily at that time, which she initially noted significant improvement in her symptoms at that time and then subsequently developed diarrhea, which she associated with Sucralfate and omeprazole and stopped both medications. She is now agreeable to resume the omeprazole at least once daily and monitor for recurrent diarrhea. The patient does have a known solitary liver lesion, but no associated transaminitis or elevated bilirubin suggesting this is an obstructive process related to her liver lesion. DISPOSITION AND FOLLOWUP PLAN: The patient is being discharged to home with medications as listed above. She has a PET scan scheduled for tomorrow and an MRI of the liver scheduled for early next week, at which point she will follow up with both Radiation and Medical Oncology to discuss next steps, but plans at this time are for SBRT to her liver lesion. KERVIN JOHNSON [id number]/[facility] #: [id number] [place]
== END 2018-07-14 10:15 | disposition home or self-care (01) ==
LOC: MED 16:58
PROVIDERS: ADMIT Internal Medicine Hematology & Oncology; ATTEND Internal Medicine Hematology & Oncology
DX: R11.2 Nausea with vomiting, unspecified (principal); E87.6 Hypokalemia; E83.42 Hypomagnesemia; C25.9 Malignant neoplasm of pancreas, unspecified; C79.89 Secondary malignant neoplasm of other specified sites; I10 Essential (primary) hypertension; E11.9 Type 2 diabetes mellitus without complications; Z79.4 Long term (current) use of insulin; Z79.899 Other long term (current) drug therapy; Z79.82 Long term (current) use of aspirin; Z91.041 Radiographic dye allergy status
CPT/HCPCS: 36415; 80053; 83735; 85025; 96365; 96372; 99217; 99219; A9270-GY; G0378; J1100; J1642; J1650

== ENCOUNTER 2018-08-12 12:36 | Observation (INO) | payer BC ==
[2018-08-12] MEDS ORDERED: NS 0.9% 1000 ML* 1,000 ML IV ONE (12:56)
--- NOTE | 2018-08-12 13:00 | ED ---
Neurological HPI - HPI Summary HPI Summary: The pt is a 62 y/o female with a MHx of pancreatic CA accompanied by a friend presenting to [facility] c/o sudden onset slurred speech since 12:00 noon today. She texted her friend between 6 am and 7 am without any difficulties. She felt that her thoughts were jumbled but speech is at baseline by the time of arrival. She notes HTN because she has not been able to take her medications and loss of appetite but denies facial droop. - History of Current Complaint Chief Complaint: EDNeurologicalDeficit Stated Complaint: DIFF SPEAKING Hx Obtained From: Patient Onset/Duration: Sudden Onset - 12:00 noon, Resolved Number of Seizures: 0 Pain Intensity: 0 Pain Scale Used: 0-10 Numeric Character: Impaired Speech Number of Episodes: 0 Associated Signs and Symptoms: Positive: Decreased Oral Intake - Additional Pertinent History Primary Care Physician: AMAURY - Allergy/Home Medications Allergies/Adverse Reactions: Allergies Allergy/AdvReac Type Severity Reaction Status Date / Time Iodinated Contrast- Oral and Allergy Intermediate Vomiting Verified 08/12/18 12: 58 IV Dye shellfish derived Allergy Intermediate Eyes Verified 08/12/18 12:58 Itchy/Swollen/Red/Watery PMH/Surg Hx/FS Hx/Imm Hx Previously Healthy: No Endocrine/Hematology History: Reports: Hx Blood Transfusions, 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 Cardiovascular History: Reports: Hx Hypertension, Other Cardiovascular Problems/ Disorders - port for pancreatic cancer Denies: Hx Congestive Heart Failure, Hx Pacemaker/ICD Respiratory History: Denies: Hx Asthma GI History: Reports: Hx Diverticulosis, Hx Gastroesophageal Reflux Disease, Hx Gastrointestinal Bleed, Hx Hiatal Hernia, Hx Jaundice, Other GI Disorders - COLONOSCOPY 02/2013 WITH BENIGN GROWTHS REMOVED History: Denies: Hx Dialysis, Hx Renal Disease Musculoskeletal History: Denies: Hx Rheumatoid Arthritis, Hx Osteoporosis Sensory History: Reports: Hx Cataracts, Hx Contacts or Glasses - reading glasses Denies: Hx Hearing Aid, Hx Hearing Problem Opthamlomology History: Reports: Hx Cataracts, Hx Contacts or Glasses - reading glasses Psychiatric History: Reports: Hx Anxiety, Hx Depression Denies: Hx Panic Disorder - Cancer History Cancer Type, Location and Year: pancreatic 2014. secondary liver CA Hx Chemotherapy: Yes - CHEMO TREATMENT ENDED IN JANUARY 2018 Hx Radiation Therapy: Yes - 2016 - Surgical History Surgery Procedure, Year, and Place: ERCP WITH STENTING 12/23/14 @ [facility] – [place]. POWER PORT 02/2015 @ [facility] [place]. 10/29/2015 Melo CAMERON @ [facility]; Colonscopies 2X, polyps removal on the first colonoscopy done 03/2013 where patient experienced bleeding 18 days later, procedure done with a titanium clip. LIVER BX 2017 X2 - Immunization History Date of Tetanus Vaccine: unknown Date of Influenza Vaccine: unk Infectious Disease History: No Infectious Disease History: Denies: Hx Clostridium Difficile, Hx Hepatitis, Hx Human Immunodeficiency Virus (HIV), Hx of Known/Suspected MRSA, Hx Shingles, Hx Tuberculosis, Hx Known/ Suspected VRE, Hx Known/Suspected VRSA, History Other Infectious Disease, Traveled Outside the [place] in Last 30 Days - Family History Known Family History: Positive: Diabetes, Other - CHF - Social History Occupation: Employed Full-time Lives: Alone Alcohol Use: None Substance Use Type: Reports: None Smoking Status (MU): Never Smoked Tobacco Have You Smoked in the Last Year: No Review of Systems Constitutional: Other - Positive: Loss of appetite, HTN Neurological: Negative - Facial droop Positive: Slurred Speech All Other Systems Reviewed And Are Negative: Yes Physical Exam - Summary Physical Exam Summary: GENERAL: Patient is a well developed and nourished __(M/F)__ who is lying comfortable in the stretcher. Patient is not in any acute respiratory distress. HEAD AND FACE: Normocephalic EYES: PERRLA, EOMI x 2. EARS: Hearing grossly intact. MOUTH: Oropharynx within normal limits. NECK: Supple, trachea is midline, no adenopathy, no JVD, no carotid bruit. CHEST: Symmetric, no tenderness at palpation LUNGS: Clear to auscultation bilaterally. No wheezing or crackles. CVS: Regular rate and rhythm, S1 and S2 present, no murmurs or gallops appreciated. ABDOMEN: Soft, non-tender. Bowel sounds are normal. No abdominal abnormal pulsations. EXTREMITIES: Full ROM in all major joints, no edema, no cyanosis or clubbing. NEURO: Alert and oriented x 3. No acute neurological deficits. Speech is normal and follows commands.See MYRON Stroke Scale Neuro exam extended: Cranial nerves II-XII grossly intact, no dysmetria finger to nose, nml heel to newell SKIN: Dry and warm Triage Information Reviewed: Yes Vital Signs On Initial Exam: Initial Vitals Temp Pulse Resp BP Pulse Ox 97.4 F 64 16 145/87 97 08/12/18 12:39 08/12/18 12:39 08/12/18 12:39 08/12/18 12:39 08/12/18 12:39 Vital Signs Reviewed: Yes Diagnostics - Vital Signs Vital Signs Temp Pulse Resp BP Pulse Ox 08/12/18 12:39 97.4 F 64 16 145/87 97 - Laboratory Result Diagrams: 08/12/18 14:01 08/12/18 14:01 Lab Statement: Any lab studies that have been ordered have been reviewed, and results considered in the medical decision making process. - Radiology CXR Radiology Interpretation Completed By: Radiologist - IMPRESSION: No active cardiopulmonary disease is noted. The ED physician reviewed this radiology report. - CT Brain CT CT Interpretation Completed By: Radiologist - IMPRESSION: NO ACUTE INTRACRANIAL PATHOLOGY. The ED physician reviewed this radiology report. - EKG 13:25 Cardiac Rate: NL - 61 bpm Summary of EKG Findings: Q waves seen on the anterior leads NIH Scale - NIH Scale Level of Consciousness: Alert/Keenly Responsive Ask Patient the Month and His/Her Age: Both Correct Ask Pt to Open/Close Eyes and Unit Secy/Release Non-Paretic Hand: Both Correctly Best Gaze (Only Horizontal Eye Movement): Normal Visual Field Testing: No Visual Loss Facial Paresis-Pt to Smile & Close Eyes or Grimace Symmetry: Normal/Symmetrical Motor Function - Right Arm: No Drift-Holds 10 Seconds Motor Function - Left Arm: No Drift-Holds 10 Seconds Motor Function - Right Leg: No Drift-Holds 10 Seconds Motor Function - Left Leg: No Drift-Holds 10 Seconds Limb Ataxia-Must be out of Proportion to Weakness Present: Absent Sensory (Use Pinprick to Test Arms/Legs/Trunk/Face): Normal Best Language (Describe Picture, Name Items): No Aphasia Dysarthria (Read Several Words): Normal Extinction and Inattention: No Abnormality Total Score: 0 Course/Dx - Course Course Of Treatment: A 62 year-old F presents to the ED with a CC of sudden onset slurred speech since 12:00 noon today. Her speech was normal betwen 6 am and 7am. At the time of arrival, the pt felt that her thoughts were jumbled and speech is at baseline. She notes HTN because she has not been able to take her medications and loss of appetite but denies facial droop.A physical exam is unremarkable; NIH score= 0. A Brain CT and CXR are both unremarkable. An EKG reveals Q waves seen on the anterior leads. In the ED course, pt was given N.s 0.9% 1000mL IV which improved the symptoms. I discussed the care of the patient with Dr. Andreas Dodge MD and Dr. Hanh MD who agreed to admit the pt. Patient will be admitted with a final Dx of altered mental status. I discussed results with patient. The patient agrees with this plan. Allergies noted. - Diagnoses Provider Diagnoses: Altered mental status - Physician Notifications Discussed Care Of Patient With: Anita Schafer - Hospitalist Time Discussed With Above Provider: 13:55 Instructed by Provider To: Other - Dr. Schafer recommended consulting with the oncologist before admission 14:05: Dr. Andreas Dodge, Oncologist agreed to admit the pt. Discharge - Sign-Out/Discharge Documenting (check all that apply): Patient Departure - Admit - Discharge Plan Condition: Stable Disposition: ADMITTED TO [facility] - Billing Disposition and Condition Condition: STABLE Disposition: Admitted to [facility] - Attestation Statements Document Initiated by Scribe: Yes Documenting Scribe: Cynthia Parra Provider For Whom Thalia is Documenting (Include Credential): Dr. Derek Dill MD Scribe Attestation: Cynthia Mcduffie , scribed for Dr. Derek Dill MD on 08/12/18 at 2058. Scribe Documentation Reviewed: Yes Provider Attestation: The documentation as recorded by the Cynthia hopper accurately reflects the service I personally performed and the decisions made by me, Dr. Derek Dill MD
--- NOTE | 2018-08-12 13:15 | RAD ---
HISTORY: Neurological changes/code baires COMPARISONS: None TECHNIQUE: Multiple contiguous axial CT scans were obtained of the head without intravenous contrast. FINDINGS: HEMORRHAGE/INFARCT: There is no hemorrhage or acute infarct. MASSES/SHIFT: There is no mass or shift. EXTRA-AXIAL SPACES: There is an arachnoid cyst of the left middle cranial fossa. SULCI AND VENTRICLES: The sulci and ventricles are normal in size and position for the patient's stated age. CEREBRUM: There are no focal parenchymal abnormalities. BRAINSTEM: There are no focal parenchymal abnormalities. CEREBELLUM: There are no focal parenchymal abnormalities. VESSELS: The vessels are grossly normal. PARANASAL SINUSES: The paranasal sinuses are clear. ORBITS: The orbits are unremarkable. BONES AND SOFT TISSUE: No bone or soft tissue abnormalities are noted. OTHER: None IMPRESSION: NO ACUTE INTRACRANIAL PATHOLOGY.
--- NOTE | 2018-08-12 13:39 | RAD ---
Indication: Code baires, neurologic changes Single AP view of the chest demonstrate no mediastinal shift. Heart is of normal size and configuration. Lung staples appear clear. Central line is in place with the tip in the right atrium. No pneumothorax is noted. When compared to previous exam of August 04, 2015 no significant change is noted. IMPRESSION: No active cardiopulmonary disease is noted.
[2018-08-12 14:30] LABS: ABS Basophils 0.1 10^3/ul (0-0.2); ABS Eosinophils 0.2 10^3/ul (0-0.6); ABS Lymphocytes 1.9 10^3/ul (1.0-4.8); ABS Monocytes 0.9 10^3/ul (0-0.8); ABS Neutrophils 6.5 10^3/ul (1.5-7.7); ABS Nucleated RBC 0 10^3/ul; Eosinophil % 1.8 % (0-6); Hematocrit 33 % (35-47); Lymphocyte % 19.4 % (25-47); Mean Corpuscular HGB Conc 34 g/dl (31-36); Mean Corpuscular Hemoglobin 27 pg (27-31); Mean Corpuscular Volume 80 fL (80-97); Mean Platelet Volume 7.2 um3 (7.4-10.4); Nucleated Red Blood Cells % 0; Platelet Count 250 10^3/ul (150-450); Red Blood Count 4.04 10^6/ul (4.00-5.40); Red Cell Distribution Width 17 % (10.5-15); White Blood Count 9.6 10^3/ul (3.5-10.8)
[2018-08-12 14:39] LABS: INR 1.22 (0.77-1.02)
[2018-08-12 14:49] LABS: EGFR Non-African American 59.1 (>60)
[2018-08-12] MEDS ORDERED: Ondansetron INJ* 2 MG/ML VIAL IV PRN (16:56)
[2018-08-12] MEDS ORDERED: Aspirin TAB* 325 MG PO ONE (17:00)
[2018-08-12] MEDS ORDERED: Enoxaparin(*) 40 MG/0.4 ML SYR SUBCUT SCH (17:00)
[2018-08-12] MEDS ORDERED: Ondansetron ODT TAB* 4 MG PO PRN (17:03)
[2018-08-12] MEDS ORDERED: Diphenoxylat/Atrop 2.5-0.025M* 1 TAB PO PRN (17:03)
[2018-08-12] MEDS ORDERED: Loperamide CAP* 2 MG PO PRN (17:03)
[2018-08-12] MEDS ORDERED: Meclizine TAB* 12.5 MG PO PRN (17:03)
[2018-08-12] MEDS ORDERED: Dextrose 50% Syringe 50 ML* 25 GM/50 ML SYRINGE IV PUSH PRN (19:53)
[2018-08-12] MEDS ORDERED: Insulin GLARGINE(*) 1 UNITS UNIT SUBCUT SCH (21:00)
[2018-08-12] MEDS ORDERED: Atorvastatin* 40 MG TAB PO SCH (21:00)
[2018-08-12] MEDS: Insulin LISPRO* 1 UNITS UNIT SUBCUT SCH (21:09)
[2018-08-12] MEDS: Sucralfate SUSP 1 GM/10 ml 10 ML UDC PO SCH (21:10)
[2018-08-12] MEDS: Clotrimazole TROCHE* 10 MG TROCHE PO SCH ×2 (21:10→21:11)
[2018-08-12] MEDS ORDERED: Magnesium Sulfate 2 GM IV* 2 GM/50 ML BAG IVPB ONE (22:14)
[2018-08-13] MEDS ORDERED: PANCRELIPASE 24000 UNIT PO PRN (00:04)
[2018-08-13] MEDS: KCL 10 MEQ/50 ML IVPREMIX* 10 MEQ/50 ML BAG IV SCH ×3 (00:08→02:51)
--- NOTE | 2018-08-13 02:13 | HP ---
AMENDED REPORT NOW INCLUDES DESIGNATED COSIGNER CC: Aleksandra Decker MD * HISTORY AND PHYSICAL: DATE OF ADMISSION: 08/12/18 PRIMARY CARE PROVIDER: Dr. Decker. ATTENDING PHYSICIAN AND PRIMARY ONCOLOGIST: Andreas Dodge MD.* (DICATED BY KERVIN JOHNSON) ADMITTING PROVIDER: KERVIN Johnson CHIEF COMPLAINT: Word finding difficulty. HISTORY OF PRESENT ILLNESS: This is a very pleasant 62-year-old female with recurrent metastatic pancreatic cancer with plans to start palliative chemotherapy next week who presented to the emergency department with complaints of 10-15 minute period of word finding difficulty that occurred earlier today. The patient states that she has been feeling quite poorly over the last couple of weeks. She was seen in the oncology office earlier this week for hydration and electrolyte replacement after multiple episodes of nausea and vomiting. She has been unable to tolerate her anti-hypertensive medications for several days. When she presented to the oncology office, her blood pressure at that time was 190/100 mmHg. She was able to take her antihypertensive last night and again this morning and is normotensive when she reached the emergency department. The patient states that apart from her generalized malaise, she had no unusual symptoms this morning. She was speaking to the woman who cleans her house and found that she was having significant word finding difficulties and some garbled speech. She states she was not confused and was aware that what was coming out of her mouth did not match with her intended words. She had no associated headache. No chest pain or shortness of breath, no facial droop or focal weakness. She states that the episode lasted approximately 10-15 minutes and started to improve on her way to the hospital. PAST MEDICAL HISTORY: 1. Metastatic pancreatic cancer. 2. Insulin dependent diabetes. 3. Hypertension. HOME MEDICATIONS: 1. Amlodipine 10 p.o. daily. 2. Vitamin D and calcium supplement one tablet p.o. daily. 3. Vitamin D 1000 units p.o. daily. 4. Celexa 10 mg p.o. daily. 5. Lomotil one tablet p.o. four times daily as needed for diarrhea. 6. NovoLog on a sliding scale with mealtime. 7. Lantus 20 units subcu at bedtime. 8. Lisinopril 20 mg p.o. daily. 9. Imodium 2 mg p.o. q.4 hours as needed for diarrhea. 10. Meclizine 12.5 mg p.o. twice daily as needed. 11. Metoprolol succinate 25 mg p.o. daily. 12. Omeprazole 40 mg p.o. daily. 13. Ondansetron 4 mg p.o. q.8 hours as needed. 14. Pancrelipase 6000 units p.o. three times daily with meals. 15. Sucralfate 10 mL p.o. three times daily. SOCIAL HISTORY: The patient lives alone. She is single and never . No significant alcohol or tobacco history. She is retired from [employer]. PHYSICAL EXAMINATION GENERAL: This is a very pleasant 62-year-old female in no acute distress. 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 RESPIRATORY: Lung are clear to auscultation without wheezes, crackles or rhonchi. CARDIOVASCULAR: Heart has a regular rate and rhythm without murmurs, rubs or gallops. ABDOMEN: Abdomen is soft and nontender to palpation. EXTREMITIES: No edema. NEUROLOGIC: Cranial nerves II through XII are intact. Romberg is negative. Normal finger to nose testing, rapid alternating movements and heel to newell testing. Sensation is grossly intact. Strength is 5/5 in all four extremities. LABORATORY DATA AND IMAGING: CBC showed white blood cell count of 9600, hemoglobin 11 g/dL, platelet count of 250,000. INR of 1.22. Comprehensive metabolic panel showed sodium of 137 normal, potassium was 2.9, BUN 12, creatinine 0.96. Initial point of care glucose of 65, transaminases and total bilirubin within normal limits. Imaging: Chest x-ray showed no acute disease. CT brain showed no acute intracranial pathology. IMPRESSION: This is a 62-year-old female with metastatic pancreatic cancer, insulin dependent diabetes as well as hypertension who presented to the emergency department after a period of 10-15 minutes of word finding difficulty and garbled speech, it sounds consistent with an expressive aphasia. Initial studies including CT brain are negative. Symptoms appeared most likely to be secondary to a TIA. She has no known cardiovascular history. 1. Transient ischemic attack: The patient will be admitted for a period of observation with q.4 hour neurologic checks. Continue with telemetry monitoring. She requires an MRI of the brain as well as echocardiogram. Both of these things can be completed as an outpatient as they will not be available tomorrow. Give 325 mg of aspirin now and start high dose statin therapy. We will check fasting lipid panel as well as reevaluate her hemoglobin A1c tomorrow. 2. Insulin dependent diabetes: Her glucose has been under excellent control. We will check a hemoglobin A1c and otherwise continue her usual insulin regimen. 3. Hypertension: Currently well controlled but she went several days without her antihypertensives due to nausea and vomiting. Will continue her usual home antihypertensives. 4. Thrush: Start clotrimazole ben. 5. Hypokalemia: Likely due to recent GI loss and we will replete appropriately. Add on magnesium. 6. Metastatic pancreatic cancer: The patient is scheduled to start palliative chemotherapy with cycle one of gemcitabine and Abraxane next week 08/17/18. She has liver metastasis and a few scattered lymph nodes. 7. Code status: The patient is full code. 8. DVT prophylaxis with 40 mg of Lovenox subcu daily. 9. Disposition: The patient is being admitted to observation status for TIA with an anticipated length of stay to be less than 2 midnights. KERVIN JOHNSON [id number]/[facility] #: [id number] [place]
[2018-08-13 05:26] LABS: ABS Basophils 0.1 10^3/ul (0-0.2); ABS Eosinophils 0.3 10^3/ul (0-0.6); ABS Lymphocytes 1.9 10^3/ul (1.0-4.8); ABS Monocytes 0.8 10^3/ul (0-0.8); ABS Neutrophils 7.7 10^3/ul (1.5-7.7); ABS Nucleated RBC 0 10^3/ul; Eosinophil % 2.4 % (0-6); Hematocrit 32 % (35-47); Lymphocyte % 17.3 % (25-47); Mean Corpuscular HGB Conc 34 g/dl (31-36); Mean Corpuscular Hemoglobin 27 pg (27-31); Mean Corpuscular Volume 81 fL (80-97); Mean Platelet Volume 7.1 um3 (7.4-10.4); Nucleated Red Blood Cells % 0; Platelet Count 267 10^3/ul (150-450); Red Blood Count 4.02 10^6/ul (4.00-5.40); Red Cell Distribution Width 17 % (10.5-15); White Blood Count 10.7 10^3/ul (3.5-10.8)
[2018-08-13 05:48] LABS: EGFR Non-African American 62.1 (>60)
[2018-08-13] MEDS ORDERED: Omeprazole CAP* 20 MG PO SCH (07:30)
[2018-08-13] MEDS: Insulin LISPRO* 1 UNITS UNIT SUBCUT SCH ×2 (07:46→12:01)
[2018-08-13 08:50] VITALS: BP 128/78
[2018-08-13] MEDS ORDERED: Citalopram TAB* 10 MG PO SCH (09:00)
[2018-08-13] MEDS ORDERED: Lisinopril TAB* 10 MG PO SCH (09:00)
[2018-08-13] MEDS ORDERED: amLODIPine TAB* 5 MG PO SCH (09:00)
[2018-08-13] MEDS ORDERED: Aspirin 81 mg CHEW TAB* 81 MG TAB.CHEW PO SCH (09:00)
[2018-08-13] MEDS ORDERED: Metoprolol Succinate XL TAB* 25 MG PO SCH (09:00)
[2018-08-13] MEDS: Clotrimazole TROCHE* 10 MG TROCHE PO SCH (09:34)
[2018-08-13] MEDS: Sucralfate SUSP 1 GM/10 ml 10 ML UDC PO SCH (09:36)
[2018-08-13] MEDS: PANCRELIPASE 24000 UNIT PO SCH ×2 (09:37→12:01)
[2018-08-13 10:22] LABS: Urine Appearance Clear; Urine Blood 1+ (Negative); Urine Color Yellow; Urine Ketones Negative (Negative); Urine Protein 2+(100 mg/dL) (Negative); Urine Red Blood Cell Trace(0-2/hpf) (Absent); Urine Specific Gravity 1.009 (1.010-1.030); Urine Urobilinogen Negative (Negative); Urine White Blood Cell Trace(0-5/hpf) (Absent)
== END 2018-08-13 12:15 | disposition home or self-care (01) ==
LOC: ED 12:36 → MEDTELE 18:33
PROVIDERS: ADMIT Internal Medicine Hematology & Oncology; ATTEND Internal Medicine Hematology & Oncology
DX: C25.9 Malignant neoplasm of pancreas, unspecified (principal); R41.82 Altered mental status, unspecified; E10.9 Type 1 diabetes mellitus without complications; Z79.4 Long term (current) use of insulin; I10 Essential (primary) hypertension; E87.6 Hypokalemia; R47.01 Aphasia; E87.2 Acidosis; Z92.21 Personal history of antineoplastic chemotherapy
CPT/HCPCS: 36415; 70450; 71045; 80053; 80061; 81003; 81015; 83036; 83605; 83735; 84484; 85025; 85610; 85730; 86850; 86900; 86901; 87086; 93005; 96365; 96375; 99284; A9270-GY; G0378; J1650; J3475; J3480

== ENCOUNTER 2018-09-03 17:40 | Emergency (ER) | payer BC ==
[2018-09-03 19:15] LABS: ABS Basophils 0 10^3/ul (0-0.2); ABS Eosinophils 0 10^3/ul (0-0.6); ABS Lymphocytes 0.1 10^3/ul (1.0-4.8); ABS Monocytes 0 10^3/ul (0-0.8); ABS Neutrophils 1.7 10^3/ul (1.5-7.7); ABS Nucleated RBC 0 10^3/ul; Eosinophil % 1.3 % (0-6); Hematocrit 25 % (35-47); Hemoglobin 8.7 g/dl (12.0-16.0); Lymphocyte % 7.6 % (25-47); Mean Corpuscular HGB Conc 35 g/dl (31-36); Mean Corpuscular Hemoglobin 28 pg (27-31); Mean Corpuscular Volume 80 fL (80-97); Mean Platelet Volume 7.7 fL (7.4-10.4); Nucleated Red Blood Cells % 0.1; Platelet Count 88 10^3/ul (150-450); Red Blood Count 3.14 10^6/ul (4.00-5.40); Red Cell Distribution Width 15 % (10.5-15); White Blood Count 1.9 10^3/ul (3.5-10.8)
[2018-09-03 19:31] LABS: EGFR Non-African American 76.2 (>60)
[2018-09-03] MEDS ORDERED: NS 0.9% 1000 ML* 1,000 ML IV ONE ×2 (19:56→21:46)
--- NOTE | 2018-09-03 21:34 | ED ---
Complex/Multi-Sys Presentation - HPI Summary HPI Summary: Patient with history of metastatic pancreatic cancer with metastases to liver complains of fatigue and possible dehydration 1 day. Patient states recent history of transfusion 4 days ago. Also chemotherapy treatment 4 days ago. Denies pain, fever, cough, sore throat, LOBATO, neck stiffness, CP, SOB, N/V/D, abdominal pain, change in urine, change in BM. Medical history is TIA, DM 2, HTN, HDL, pancreatic cancer with Whipple 2016. - History Of Current Complaint Chief Complaint: EDGeneral Time Seen by Provider: 09/03/18 18:10 Hx Obtained From: Patient Onset/Duration: Gradual Onset Timing: Constant Severity Currently: Moderate Severity Initially: Moderate - Allergies/Home Medications Allergies/Adverse Reactions: Allergies Allergy/AdvReac Type Severity Reaction Status Date / Time Iodinated Contrast- Oral and Allergy Intermediate Vomiting Verified 08/23/18 08: 38 IV Dye shellfish derived Allergy Intermediate Eyes Verified 08/23/18 08:38 Itchy/Swollen/Red/Watery PMH/Surg Hx/FS Hx/Imm Hx Endocrine/Hematology History: Reports: Hx Blood Transfusions, 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 Cardiovascular History: Reports: Hx Hypertension, Other Cardiovascular Problems/ Disorders - port for pancreatic cancer Denies: Hx Congestive Heart Failure, Hx Pacemaker/ICD Respiratory History: Denies: Hx Asthma GI History: Reports: Hx Diverticulosis, Hx Gastroesophageal Reflux Disease, Hx Gastrointestinal Bleed, Hx Hiatal Hernia, Hx Jaundice, Other GI Disorders - COLONOSCOPY 02/2013 WITH BENIGN GROWTHS REMOVED History: Denies: Hx Dialysis, Hx Renal Disease Musculoskeletal History: Denies: Hx Rheumatoid Arthritis, Hx Osteoporosis Sensory History: Reports: Hx Cataracts, Hx Contacts or Glasses - reading glasses Denies: Hx Hearing Aid, Hx Hearing Problem Opthamlomology History: Reports: Hx Cataracts, Hx Contacts or Glasses - reading glasses Psychiatric History: Reports: Hx Anxiety, Hx Depression Denies: Hx Panic Disorder - Cancer History Cancer Type, Location and Year: pancreatic 2014. secondary liver CA Hx Chemotherapy: Yes - CHEMO TREATMENT ENDED IN JANUARY 2018 Hx Radiation Therapy: Yes - 2016 - Surgical History Surgery Procedure, Year, and Place: [place] [facility] [place] [facility] [place] 10/29/2015 Whipple SX @ [facility]; Colonscopies 2X, polyps removal on the first colonoscopy done 03/2013 where patient experienced bleeding 18 days later, procedure done with a titanium clip. ( PER PT NOTED THT CLIP HAD SHED). LIVER BX 2017 X2 - Immunization History Date of Tetanus Vaccine: unknown Date of Influenza Vaccine: unk Infectious Disease History: No Infectious Disease History: Denies: Hx Clostridium Difficile, Hx Hepatitis, Hx Human Immunodeficiency Virus (HIV), Hx of Known/Suspected MRSA, Hx Shingles, Hx Tuberculosis, Hx Known/ Suspected VRE, Hx Known/Suspected VRSA, History Other Infectious Disease, Traveled Outside the [place] in Last 30 Days - Family History Known Family History: Positive: Diabetes, Other - CHF - Social History Alcohol Use: None Substance Use Type: Reports: None Smoking Status (MU): Never Smoked Tobacco Have You Smoked in the Last Year: No Review of Systems Positive: Fatigue Eyes: Negative ENT: Negative Cardiovascular: Negative Respiratory: Negative Gastrointestinal: Negative Genitourinary: Negative Musculoskeletal: Negative Skin: Negative Neurological: Negative Psychological: Normal All Other Systems Reviewed And Are Negative: Yes Physical Exam - Summary Physical Exam Summary: Physical exam unremarkable. Triage Information Reviewed: Yes Vital Signs On Initial Exam: Initial Vitals Temp Pulse Resp BP Pulse Ox 98.8 F 79 20 128/72 97 09/03/18 17:59 09/03/18 17:59 09/03/18 17:59 09/03/18 17:59 09/03/18 17:59 Vital Signs Reviewed: Yes Appearance: Positive: Well-Appearing Skin: Positive: Warm Head/Face: Positive: Normal Head/Face Inspection Eyes: Positive: Normal Neck: Positive: Supple Respiratory/Lung Sounds: Positive: Clear to Auscultation Cardiovascular: Positive: Normal Abdomen Description: Positive: Nontender Musculoskeletal: Positive: Normal Neurological: Positive: Normal Psychiatric: Positive: Normal AVPU Assessment: Alert - Talmage Coma Scale Best Eye Response: 4 - Spontaneous Best Motor Response: 6 - Obeys Commands Best Verbal Response: 5 - Oriented Coma Scale Total: 15 Diagnostics - Vital Signs Vital Signs Temp Pulse Resp BP Pulse Ox 09/03/18 20:00 71 147/72 95 09/03/18 19:51 69 119/71 96 09/03/18 19:00 82 133/72 95 09/03/18 18:30 120/64 09/03/18 18:29 74 133/84 99 11/17/18 18:00 82 128/72 99 18 17:59 98.8 F 79 20 128/72 97 - Laboratory Lab Results: Lab Results 09/03/18 09/03/18 09/03/18 Range/Units 18:59 18:59 18:59 WBC 1.9 L (3.5-10.8) 10^3/ul RBC 3.14 L (4.00-5.40) 10^6/ul Hgb 8.7 L (12.0-16.0) g/dl Hct 25 L (35-47) % MCV 80 (80-97) fL MCH 28 (27-31) pg MCHC 35 (31-36) g/dl RDW 15 (10.5-15) % Plt Count 88 L D (150-450) 10^3/ul MPV 7.7 (7.4-10.4) fL Neut % (Auto) 89.5 H (38-83) % Lymph % (Auto) 7.6 L (25-47) % Flagler % (Auto) 1.4 (0-7) % Eos % (Auto) 1.3 (0-6) % Baso % (Auto) 0.2 (0-2) % Absolute Neuts (auto) 1.7 (1.5-7.7) 10^3/ul Absolute Lymphs (auto) 0.1 L (1.0-4.8) 10^3/ul Absolute Monos (auto) 0 (0-0.8) 10^3/ul Absolute Eos (auto) 0 (0-0.6) 10^3/ul Absolute Basos (auto) 0 (0-0.2) 10^3/ul Absolute Nucleated RBC 0 10^3/ul Nucleated RBC % 0.1 Sodium 132 L (135-145) mmol/L Potassium 4.0 (3.5-5.0) mmol/L Chloride 100 L (101-111) mmol/L Carbon Dioxide 27 (22-32) mmol/L Anion Gap 5 (2-11) mmol/L BUN 17 (6-24) mg/dL Creatinine 0.77 (0.51-0.95) mg/dL Est GFR ( Amer) 92.2 (>60) Est GFR (Non-Af Amer) 76.2 (>60) BUN/Creatinine Ratio 22.1 H (8-20) Glucose 98 (70-100) mg/dL Lactic Acid 1.1 (0.5-2.0) mmol/L Calcium 8.1 L (8.6-10.3) mg/dL Total Bilirubin 1.40 H (0.2-1.0) mg/dL AST 214 H (13-39) U/L ALT 273 H (7-52) U/L Alkaline Phosphatase 339 H (34-104) U/L Troponin I 0.02 (<0.04) ng/mL C-Reactive Protein 82.19 H (<8.01) mg/L B-Natriuretic Peptide (<=100) pg/mL Total Protein 5.3 L (6.4-8.9) g/dL Albumin 2.8 L (3.2-5.2) g/dL Globulin 2.5 (2-4) g/dL Albumin/Globulin Ratio 1.1 (1-3) Influenza A (Rapid) (Negative) Influenza B (Rapid) (Negative) 09/03/18 09/03/18 Range/Units 18:59 19:36 WBC (3.5-10.8) 10^3/ul RBC (4.00-5.40) 10^6/ul Hgb (12.0-16.0) g/dl Hct (35-47) % MCV (80-97) fL MCH (27-31) pg MCHC (31-36) g/dl RDW (10.5-15) % Plt Count (150-450) 10^3/ul MPV (7.4-10.4) fL Neut % (Auto) (38-83) % Lymph % (Auto) (25-47) % Flagler % (Auto) (0-7) % Eos % (Auto) (0-6) % Baso % (Auto) (0-2) % Absolute Neuts (auto) (1.5-7.7) 10^3/ul Absolute Lymphs (auto) (1.0-4.8) 10^3/ul Absolute Monos (auto) (0-0.8) 10^3/ul Absolute Eos (auto) (0-0.6) 10^3/ul Absolute Basos (auto) (0-0.2) 10^3/ul Absolute Nucleated RBC 10^3/ul Nucleated RBC % Sodium (135-145) mmol/L Potassium (3.5-5.0) mmol/L Chloride (101-111) mmol/L Carbon Dioxide (22-32) mmol/L Anion Gap (2-11) mmol/L BUN (6-24) mg/dL Creatinine (0.51-0.95) mg/dL Est GFR ( Amer) (>60) Est GFR (Non-Af Amer) (>60) BUN/Creatinine Ratio (8-20) Glucose (70-100) mg/dL Lactic Acid (0.5-2.0) mmol/L Calcium (8.6-10.3) mg/dL Total Bilirubin (0.2-1.0) mg/dL AST (13-39) U/L ALT (7-52) U/L Alkaline Phosphatase (34-104) U/L Troponin I (<0.04) ng/mL C-Reactive Protein (<8.01) mg/L B-Natriuretic Peptide 330 H (<=100) pg/mL Total Protein (6.4-8.9) g/dL Albumin (3.2-5.2) g/dL Globulin (2-4) g/dL Albumin/Globulin Ratio (1-3) Influenza A (Rapid) Negative (Negative) Influenza B (Rapid) Negative (Negative) Result Diagrams: 09/03/18 18:59 09/03/18 18:59 Lab Statement: Any lab studies that have been ordered have been reviewed, and results considered in the medical decision making process. - Radiology cxr Radiology Interpretation Completed By: ED Physician - no acute process - EKG 1 Cardiac Rate: NL EKG Rhythm: Sinus Rhythm ST Segment: Non-Specific Ectopy: PACs EKG Comparison: No Significant Change Complex Multi-Symp Course/Dx Course Of Treatment: Patient with history of metastatic pancreatic cancer with metastases to liver complains of fatigue and possible dehydration 1 day. Patient states recent history of transfusion 4 days ago. Also chemotherapy treatment 4 days ago. Denies pain, fever, cough, sore throat, LOBATO, neck stiffness, CP, SOB, N/V/D, abdominal pain, change in urine, change in BM. Medical history is TIA, DM 2, HTN, HDL, pancreatic cancer with Whipple 2016. Physical exam unremarkable. Vital signs within normal limits. EKG unremarkable. Chest x-ray unremarkable. Elevated LFTs. Discussed patient sx and labs with Dr. Oliva oncology regarding elevated LFTs and fatigue. Dr. Oliva recommended ultrasound of liver which if negative for obstruction, would indicate that elevated LFTs more likely chemotherapy related. Patient had chemotherapy treatment 4 days ago. Vital signs stable. Labs at patient baseline. ANC 1.7. Chest x-ray unremarkable. EKG normal. Discussed patient with Dr. Jorge also felt patient could be discharged home with follow up with oncology. Patient understands and approves of plan. - Diagnoses Provider Diagnoses: Primary pancreatic cancer with metastasis to other site, Fatigue, Elevated liver enzymes Discharge - Sign-Out/Discharge Documenting (check all that apply): Patient Departure - Discharge Plan Condition: Stable Disposition: HOME Patient Education Materials: Pancreatic Cancer (DC), Fatigue (ED) Referrals: Aleksandra Decker MD [Primary Care Provider] - Additional Instructions: Follow-up with your oncologist. Maintain hydration. Return to the ED for any new or worsening symptoms. - Billing Disposition and Condition Condition: STABLE Disposition: Home
[2018-09-03 22:39] LABS: Urine Appearance Clear; Urine Blood 1+ (Negative); Urine Color Yellow; Urine Ketones Negative (Negative); Urine Protein Negative (Negative); Urine Red Blood Cell Absent (Absent); Urine Specific Gravity 1.002 (1.010-1.030); Urine Urobilinogen Negative (Negative); Urine White Blood Cell Trace(0-5/hpf) (Absent)
[2018-09-03 23:02] VITALS: BP 126/68
--- NOTE | 2018-09-07 15:12 | ED ---
Progress - Progress Note Progress Note: Pt's in aerobic blood culture bottle revealed Streptococcus gallolyticus. Her aerobic culture bottle showed no growth after 3 days. Although this is only 1 positive cx, called patient to see how she is feeling given her medical history (ie. cancer, poor immune system) and she reports she received a call updating these results on 09/05 and came back into the hospital. She was admitted to treat this infection. She was just discharged yesterday and is feeling much better. No further action at this time. Course/Dx - Course Course Of Treatment: Patient with history of metastatic pancreatic cancer with metastases to liver complains of fatigue and possible dehydration 1 day. Patient states recent history of transfusion 4 days ago. Also chemotherapy treatment 4 days ago. Denies pain, fever, cough, sore throat, LOBATO, neck stiffness, CP, SOB, N/V/D, abdominal pain, change in urine, change in BM. Medical history is TIA, DM 2, HTN, HDL, pancreatic cancer with [place] 2016. Physical exam unremarkable. Vital signs within normal limits. EKG unremarkable. Chest x-ray unremarkable. Elevated LFTs. Discussed patient sx and labs with Dr. Oliva oncology regarding elevated LFTs and fatigue. Dr. Oliva recommended ultrasound of liver which if negative for obstruction, would indicate that elevated LFTs more likely chemotherapy related. Patient had chemotherapy treatment 4 days ago. Vital signs stable. Labs at patient baseline. ANC 1.7. Chest x-ray unremarkable. EKG normal. Discussed patient with Dr. Jorge also felt patient could be discharged home with follow up with oncology. Patient understands and approves of plan. - Diagnoses Provider Diagnoses: Primary pancreatic cancer with metastasis to other site, Fatigue, Elevated liver enzymes Discharge - Sign-Out/Discharge Documenting (check all that apply): Post-Discharge Follow Up - Discharge Plan Condition: Stable Disposition: HOME Patient Education Materials: Pancreatic Cancer (DC), Fatigue (ED) Referrals: Aleksandra Decker MD [Primary Care Provider] - Additional Instructions: Follow-up with your oncologist. Maintain hydration. Return to the ED for any new or worsening symptoms. - Billing Disposition and Condition Condition: STABLE Disposition: Home
== END 2018-09-03 23:00 | disposition home or self-care (01) ==
LOC: ED 17:40
DX: R53.83 Other fatigue (principal); R94.5 Abnormal results of liver function studies; C25.9 Malignant neoplasm of pancreas, unspecified; C78.7 Secondary malignant neoplasm of liver and intrahepatic bile duct; Z86.73 Personal history of transient ischemic attack (TIA), and cerebral infarction without residual deficits; E11.9 Type 2 diabetes mellitus without complications; I10 Essential (primary) hypertension; E78.5 Hyperlipidemia, unspecified
CPT/HCPCS: 36415; 71045; 76705; 80053; 81003; 81015; 83605; 83735; 83880; 84484; 85025; 86140; 87040; 87077; 87086; 87186; 87205; 93005; 96360; 96361; 99282

== ENCOUNTER 2018-09-05 11:45 | Inpatient (IN) | payer BC ==
--- NOTE | 2018-09-05 12:17 | ED ---
Complex/Multi-Sys Presentation - HPI Summary HPI Summary: This pt is a 62 y/o female, with pancreatic cancer with metastasis to the liver , presenting to [facility] for positive blood cultures. Pt reports she was in the ED 2 days ago for fatigue and subjective fever. Pt was discharged home and today she received a call about positive blood cultures. Pt states she currently does not feel better nor worse than last time she was in the ED. Today she reports subjective fever, weakness and diarrhea. Pt notes she has diarrhea as she is taking magnesium, diarrhea described as nonbloody and without mucous. Denies chest pain, SOB, nausea, vomiting. Her last chemotherapy was last week on 08/31/18. Her oncologist is Dr. Dodge. Pt states she has "trouble" with her electrolytes from her chemo. - History Of Current Complaint Chief Complaint: EDGeneral Time Seen by Provider: 09/05/18 12:06 Hx Obtained From: Patient Onset/Duration: Lasting Days, Still Present Timing: Days Severity Currently: Moderate Aggravating Factor(s): nothing Alleviating Factor(s): nothing Associated Signs And Symptoms: Positive: Weakness, Diarrhea, Fever - subjective. Negative: SOB, Chest Pain, Nausea, Vomiting - Allergies/Home Medications Allergies/Adverse Reactions: Allergies Allergy/AdvReac Type Severity Reaction Status Date / Time Iodinated Contrast- Oral and Allergy Intermediate Vomiting Verified 09/05/18 11: 50 IV Dye shellfish derived Allergy Intermediate Eyes Verified 09/05/18 11:50 Itchy/Swollen/Red/Watery Home Medications: Home Medications Citalopram TAB* [CeleXA TAB*] 20 mg PO DAILY 09/05/18 [History Confirmed ] Lisinopril TAB* [Prinivil TAB*] 40 mg PO DAILY 09/05/18 [History Confirmed 09/05] PMH/Surg Hx/FS Hx/Imm Hx Endocrine/Hematology History: Reports: Hx Blood Transfusions, 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 Cardiovascular History: Reports: Hx Hypertension, Other Cardiovascular Problems/ Disorders - port for pancreatic cancer Denies: Hx Congestive Heart Failure, Hx Pacemaker/ICD Respiratory History: Denies: Hx Asthma GI History: Reports: Hx Diverticulosis, Hx Gastroesophageal Reflux Disease, Hx Gastrointestinal Bleed, Hx Hiatal Hernia, Hx Jaundice, Other GI Disorders - COLONOSCOPY 02/2013 WITH BENIGN GROWTHS REMOVED History: Denies: Hx Dialysis, Hx Renal Disease Musculoskeletal History: Denies: Hx Rheumatoid Arthritis, Hx Osteoporosis Sensory History: Reports: Hx Cataracts, Hx Contacts or Glasses - reading glasses Denies: Hx Hearing Aid, Hx Hearing Problem Opthamlomology History: Reports: Hx Cataracts, Hx Contacts or Glasses - reading glasses Psychiatric History: Reports: Hx Anxiety, Hx Depression Denies: Hx Panic Disorder - Cancer History Cancer Type, Location and Year: pancreatic 2014. secondary liver CA Hx Chemotherapy: Yes - CHEMO TREATMENT ENDED IN JANUARY 2018 Hx Radiation Therapy: Yes - 2015 - Surgical History Surgery Procedure, Year, and Place: ERCP WITH STENTING 12/23/[address] [facility] [place]. POWER PORT 02/[address] [facility] [place]. 10/29/2015 Whipple SX @ [facility]; Colonscopies 2X, polyps removal on the first colonoscopy done 03/2013 where patient experienced bleeding 18 days later, procedure done with a titanium clip. ( PER PT NOTED THT CLIP HAD SHED). LIVER BX 2016 X2 - Immunization History Date of Tetanus Vaccine: unknown Date of Influenza Vaccine: unk Infectious Disease History: No Infectious Disease History: Denies: Hx Clostridium Difficile, Hx Hepatitis, Hx Human Immunodeficiency Virus (HIV), Hx of Known/Suspected MRSA, Hx Shingles, Hx Tuberculosis, Hx Known/ Suspected VRE, Hx Known/Suspected VRSA, History Other Infectious Disease, Traveled Outside the [place] in Last 30 Days - Family History Known Family History: Positive: Diabetes, Other - CHF - Social History Alcohol Use: None Substance Use Type: Reports: None Smoking Status (MU): Never Smoked Tobacco Have You Smoked in the Last Year: No Review of Systems Positive: Fever - subjective, Chills Negative: Chest Pain Negative: Shortness Of Breath Positive: Diarrhea. Negative: Vomiting, Nausea Positive: Weakness All Other Systems Reviewed And Are Negative: Yes Physical Exam - Summary Physical Exam Summary: VITAL SIGNS: Reviewed. GENERAL: Patient is a well-developed and nourished female who is lying comfortable in the stretcher. Patient is not in any acute respiratory distress. HEAD AND FACE: No signs of trauma. No ecchymosis, hematomas or skull depressions. No sinus tenderness. EYES: PERRLA, EOMI x 2, No injected conjunctiva, no nystagmus. EARS: Hearing grossly intact. Ear canals and tympanic membranes are within normal limits. MOUTH: Oropharynx within normal limits. NECK: Supple, trachea is midline, no adenopathy, no JVD, no carotid bruit, no c- spine tenderness, neck with full ROM. CHEST: Symmetric, no tenderness at palpation LUNGS: Clear to auscultation bilaterally. No wheezing or crackles. CVS: Regular rate and rhythm, S1 and S2 present, no murmurs or gallops appreciated. ABDOMEN: Soft, non-tender. No signs of distention. No rebound, no guarding, and no masses palpated. Bowel sounds are normal. EXTREMITIES: FROM in all major joints, no edema, no cyanosis or clubbing. NEURO: Alert and oriented x 3. No acute neurological deficits. Speech is normal and follows commands. SKIN: Dry and warm Triage Information Reviewed: Yes Vital Signs On Initial Exam: Initial Vitals Temp Pulse Resp BP Pulse Ox 97.5 F 58 16 139/68 100 09/05/18 11:47 09/05/18 11:47 09/05/18 11:47 09/05/18 11:47 09/05/18 11:47 Vital Signs Reviewed: Yes Diagnostics - Vital Signs Vital Signs Temp Pulse Resp BP Pulse Ox 09/05/18 11:47 97.5 F 58 16 139/68 100 - Laboratory Result Diagrams: 09/05/18 12:29 09/05/18 12:29 Lab Statement: Any lab studies that have been ordered have been reviewed, and results considered in the medical decision making process. - Radiology Chest XR Radiology Interpretation Completed By: Radiologist Summary of Radiographic Findings: IMPRESSION: No active cardiopulmonary disease. Dr. Cisse has reviewed this report. - EKG 12:36 Cardiac Rate: NL - at 62 bpm EKG Rhythm: Sinus Rhythm EKG Comparison: No Significant Change - compared to prior EKG on 09/03/18. Summary of EKG Findings: No ST elevations. Complex Multi-Symp Course/Dx Assessment/Plan: This pt is a 62 y/o female, with pancreatic cancer with metastasis to the liver, presenting to [facility] for positive blood cultures. Pt reports she was in the ED 2 days ago for fatigue and subjective fever. Pt was discharged home and today she received a call about positive blood cultures. Pt states she currently does not feel better nor worse than last time she was in the ED. Today she reports subjective fever, weakness and diarrhea. Pt notes she has diarrhea as she is taking magnesium, diarrhea described as nonbloody and without mucous. Denies chest pain, SOB, nausea, vomiting. Her last chemotherapy was last week on 08/31/18. Her oncologist is Dr. Dodge. Pt states she has "trouble" with her electrolytes from her chemo. Blood work shows a wbc s of 3, hemoglobin 4.5 hematocrit 12 and platelets is 140. Also the potassium level is 2.9. Patient also has increased LFTs but are slightly decreased from the last visit. Because of the low H&H I discussed the findings and the need for transfusion with the patient and she agrees. She understands the benefits and the risks of a transfusion. She agrees and signed the consent. The patient also reports no rectal bleed and no melena. She declined rectal examination this time. The patient also had 2 blood cultures positive for Streptococcus Gallolyticus which is sensitive to ceftriaxone. Therefore the patient was given 2 g of ceftriaxone. At this time I discussed the case with Dr. Oliva, oncologist, who accepted to his services for further workup and management. - Diagnoses Provider Diagnoses: Symptomatic anemia, Positive blood culture - Physician Notifications Discussed Care Of Patient With: Prashanth Oliva - oncologist Time Discussed With Above Provider: 14:18 Instructed by Provider To: Admit As Inpatient - Critical Care Time Critical Care Time: 75-104 min Discharge - Sign-Out/Discharge Documenting (check all that apply): Patient Departure - Admit to [facility] [place] - Discharge Plan Condition: Stable Disposition: ADMITTED TO [facility] - Billing Disposition and Condition Condition: STABLE Disposition: Admitted to [facility] - Attestation Statements Document Initiated by Thalia: Yes Documenting Scribe: Maryann Piedra Provider For Whom Thalia is Documenting (Include Credential): Sloan Cisse MD Scribe Attestation: Maryann Mcduffie, scribed for Sloan Cisse MD on 09/05/18 at 1823. Scribe Documentation Reviewed: Yes Provider Attestation: The documentation as recorded by the Maryann hopper accurately reflects the service I personally performed and the decisions made by me, Sloan Cisse MD
[2018-09-05] MEDS ORDERED: NS 0.9% 1000 ML* 1,000 ML IV ONE (12:19)
[2018-09-05] MEDS ORDERED: cefTRIAXone(*) 1 GM in NS 0.9% 50 ML* 50 ML IVPB ONE ×2 (12:21→18:45)
[2018-09-05 13:22] LABS: EGFR Non-African American 94.3 (>60)
[2018-09-05 13:24] LABS: INR 1.23 (0.77-1.02)
[2018-09-05 13:25] LABS: Hematocrit 12 % (35-47); Hemoglobin 4.5 g/dl (12.0-16.0); Mean Corpuscular HGB Conc 36 g/dl (31-36); Mean Corpuscular Hemoglobin 29 pg (27-31); Mean Corpuscular Volume 80 fL (80-97); Mean Platelet Volume 7.8 fL (7.4-10.4); Platelet Count 140 10^3/ul (150-450); Red Blood Count 1.54 10^6/ul (4.00-5.40); Red Cell Distribution Width 15 % (10.5-15)
[2018-09-05] MEDS ORDERED: Magnesium Oxide TAB* 400 MG PO ONE (13:43)
[2018-09-05 14:07] LABS: ABS Basophils 0 10^3/ul (0-0.2); ABS Eosinophils 0.1 10^3/ul (0-0.6); ABS Lymphocytes 0.5 10^3/ul (1.0-4.8); ABS Monocytes 0.2 10^3/ul (0-0.8); ABS Neutrophils 2.3 10^3/ul (1.5-7.7); ABS Nucleated RBC 0 10^3/ul; Eosinophil % 1.9 % (0-6); Lymphocyte % 16.4 % (25-47); Nucleated Red Blood Cells % 0
[2018-09-05] MEDS ORDERED: Loperamide CAP* 2 MG PO ONE (15:16)
[2018-09-05 16:27] LABS: Urine Appearance Clear; Urine Blood Negative (Negative); Urine Color Yellow; Urine Ketones Negative (Negative); Urine Protein Negative (Negative); Urine Specific Gravity 1.012 (1.010-1.030); Urine Urobilinogen Negative (Negative)
[2018-09-05] MEDS ORDERED: Meclizine TAB* 12.5 MG PO PRN (17:51)
[2018-09-05] MEDS ORDERED: Loperamide CAP* 2 MG PO PRN (17:51)
[2018-09-05] MEDS ORDERED: Ondansetron ODT TAB* 4 MG PO PRN (17:51)
[2018-09-05] MEDS ORDERED: Magnesium Sulf 4 GM/100 ML IV* 4,000 MG/100 ML BAG IVPB ONE (17:51)
[2018-09-05] MEDS ORDERED: predniSONE TAB* 50 MG PO SCH (18:00)
[2018-09-05] MEDS ORDERED: Insulin LISPRO* 1 UNITS UNIT SUBCUT SCH (18:00)
[2018-09-05] MEDS ORDERED: Dextrose 50% Syringe 50 ML* 25 GM/50 ML SYRINGE IV PUSH PRN (18:05)
[2018-09-05] MEDS: predniSONE TAB* 50 MG PO SCH (19:21)
[2018-09-05] MEDS: NS 0.9% w/ 40 Meq KCL 1000 ML* 1,000 ML IV SCH (20:19)
[2018-09-05] MEDS: Insulin GLARGINE(*) 1 UNITS UNIT SUBCUT SCH (21:12)
[2018-09-05 23:06] LABS: Hematocrit 29 % (35-47); Hemoglobin 10.3 g/dl (12.0-16.0); Mean Corpuscular HGB Conc 35 g/dl (31-36); Mean Corpuscular Hemoglobin 28 pg (27-31); Mean Corpuscular Volume 81 fL (80-97); Mean Platelet Volume 7.6 fL (7.4-10.4); Platelet Count 105 10^3/ul (150-450); Red Blood Count 3.63 10^6/ul (4.00-5.40); Red Cell Distribution Width 15 % (10.5-15); White Blood Count 2.7 10^3/ul (3.5-10.8)
[2018-09-06] MEDS: predniSONE TAB* 50 MG PO SCH ×2 (01:46→08:26)
[2018-09-06 02:03] LABS: ABS Basophils 0 10^3/ul (0-0.2); ABS Eosinophils 0 10^3/ul (0-0.6); ABS Lymphocytes 0.3 10^3/ul (1.0-4.8); ABS Monocytes 0.1 10^3/ul (0-0.8); ABS Neutrophils 2.3 10^3/ul (1.5-7.7); ABS Nucleated RBC 0 10^3/ul; Lymphocyte % 10.3 % (25-47); Nucleated Red Blood Cells % 0.4
[2018-09-06] MEDS ORDERED: diPHENhydraMINE IV* 50 MG/ML 1 ml VIAL (BENADRYL) IV ONE (06:00)
[2018-09-06 06:55] LABS: Hematocrit 32 % (35-47); Hemoglobin 10.8 g/dl (12.0-16.0); Mean Corpuscular HGB Conc 34 g/dl (31-36); Mean Corpuscular Hemoglobin 28 pg (27-31); Mean Corpuscular Volume 81 fL (80-97); Mean Platelet Volume 7.7 fL (7.4-10.4); Platelet Count 113 10^3/ul (150-450); Red Cell Distribution Width 15 % (10.5-15); White Blood Count 3.3 10^3/ul (3.5-10.8)
[2018-09-06 07:16] LABS: EGFR Non-African American 89.5 (>60)
[2018-09-06 07:35] LABS: ABS Basophils 0 10^3/ul (0-0.2); ABS Eosinophils 0 10^3/ul (0-0.6); ABS Lymphocytes 0.3 10^3/ul (1.0-4.8); ABS Monocytes 0.1 10^3/ul (0-0.8); ABS Neutrophils 2.9 10^3/ul (1.5-7.7)
[2018-09-06 07:38] LABS: Monocytes % 1 % (0-7)
[2018-09-06 07:40] LABS: ABS Neutrophils 2.9 10^3/ul (1.5-7.7)
[2018-09-06] MEDS: Lisinopril TAB* 10 MG PO SCH (08:26)
[2018-09-06] MEDS: Citalopram TAB* 20 MG PO SCH (08:27)
[2018-09-06] MEDS: amLODIPine TAB* 5 MG PO SCH (08:27)
[2018-09-06] MEDS: Metoprolol Succinate XL TAB* 25 MG PO SCH (08:27)
[2018-09-06] MEDS: Omeprazole CAP* 20 MG PO SCH (08:35)
[2018-09-06] MEDS: Pancrelipase CAP* 5,000 UNITS CAP PO SCH ×3 (08:36→17:59)
[2018-09-06] MEDS ORDERED: fentaNYL* 50 MCG/ML 2 ML VIAL (100 MCG VIAL) ONE (10:35)
[2018-09-06] MEDS ORDERED: Naloxone* 0.4 MG/ML 1 ML VIAL ONE (10:35)
[2018-09-06] MEDS ORDERED: Midazolam* 1 MG/ML 10 ML VIAL (10 MG) ONE (10:35)
[2018-09-06] MEDS ORDERED: Flumazenil* 0.1 MG/ML 5 ML MDV ONE (10:35)
[2018-09-06] MEDS ORDERED: Lidocaine 2% VISCOUS* 15 ML UDC ONE (10:35)
[2018-09-06] MEDS: NS 0.9% w/ 40 Meq KCL 1000 ML* 1,000 ML IV SCH (12:10)
--- NOTE | 2018-09-06 15:28 | TEE ---
Patient: CHRISTINA ELLIS [facility] Rec#: [id number] : 1955 Date: 09/06/2018 Age: 62y Height: 157 cm / 61.8 in Weight: 66 kg / 145.5 lbs Sex: F BSA: 1.67 Room#: 410 Admit Date#: 09/05/2018 Type: Inpatient Referring: Tameka Hutchins Performing: Victor Manuel Deleon MD Reading: Victor Manuel Deleon MD Coil Maker: Cecilia Sierra,EBENEZERCS,RDMS Nurse: Torey Villagomez RN Transesophageal Echocardiogram Indication: Bacteremia BP: 167/90 HR: 75 Rhythm: NSR Findings History: Fever, pancreatic cancer with mets to liver, chemotherapy, DM, HTN Technical Comments: The study quality is good. Left Ventricle: The left ventricular chamber size is normal. Mild concentric left ventricular hypertrophy is observed. Global left ventricular wall motion and contractility are within normal limits. Left ventricular systolic function is at the lower limits of normal. The estimated ejection fraction is 50-55%. There is an E to A reversal in the mitral valve flow pattern suggestive of diastolic dysfunction. Left Atrium: The left atrial chamber size is normal. There is no thrombus visualized in the left atrial appendage. Right Ventricle: The right ventricular chamber size and systolic function are within normal limits. Right Atrium: The right atrial cavity size is normal. A catheter is visualized in the right atrium. The bubble study is negative. A patent foramen ovale is not demonstrated with color Doppler and agitated contrast. Aortic Valve: The aortic valve is trileaflet. Systolic excursion of the aortic valve is normal. There is no evidence of aortic regurgitation. There is no evidence of aortic stenosis. There is no aortic vegetation present. Mitral Valve: The mitral valve leaflets appear normal. There is a trace of mitral regurgitation. There is no evidence of mitral stenosis. No vegetation is observed on the mitral valve. Tricuspid Valve: The tricuspid valve leaflets are normal. There is trace tricuspid regurgitation. No vegetation is observed on the tricuspid valve. Pulmonic Valve: The pulmonic valve appears normal. There is no evidence of pulmonic regurgitation. No vegetation is observed on the pulmonic valve. Pericardium: The pericardium appears normal. Aorta: The aortic root appears normal. Pulmonary Artery: The main pulmonary artery appears normal. Venous: The inferior vena cava appears normal. The flow pattern of the pulmonary veins appear normal. The superior vena cava appears normal. CHELSEY Procedures: All standard views were attempted within the limitations of patient tolerance and safety. History and physical as well as labs were reviewed. The patient was in a fasting state. Risks and benefits of the procedure, including alternatives, were discussed and written informed consent was obtained. The patient and/or their health care sales and merchandising representative expressed understanding of the procedure, risks and benefits. Baseline and continuous monitoring of blood pressure, heart rate, pulse oximetry and heart rhythm was performed throughout the procedure. The appropriate time-out procedure was performed as per [facility] protocol. The patient was placed in the left lateral decubitus position. The patient's posterior pharynx was anesthetized with 20ml of 2% viscous lidocaine. The patient received IV Midazolam with a total dose of 1 mg. The patient received IV Fentanyl with a total dose of 25 mcg. An oral bite block was inserted for protection of oral dentition. The multiplane transesophageal echocardiogram probe was inserted through the posterior oropharynx and advanced into the esophagus without difficulty. Multiple 2D images were obtained of the heart and its related structures. Color flow Doppler was used for evaluation. Spectral Doppler was also used. The atrial septum was interrogated with color flow Doppler. At the conclusion of the procedure the probe was removed with continuous suction without complications. The patient tolerated the procedure with no apparent complications. Contrast: Intravenous agitated saline contrast was used to assess intracardiac shunting. Conclusions Mild concentric left ventricular hypertrophy is observed. Global left ventricular wall motion and contractility are within normal limits. Left ventricular systolic function is at the lower limits of normal. The estimated ejection fraction is 50-55%. There is no thrombus visualized in the left atrial appendage. A patent foramen ovale is not demonstrated with color Doppler and agitated contrast. There is no evidence of aortic stenosis. There is no aortic vegetation present. There is a trace of mitral regurgitation. No vegetation is observed on the mitral valve. No vegetation is observed on the tricuspid valve. Measurements Name Value Normal Range Aortic Annulus 2.1 cm (1.4 - 2.6) Ao root diameter (2D) 2.8 cm (2.1 - 3.5) Ascending Ao 3.4 cm (2.1 - 3.4) Name Value Normal Range MV E-wave Vmax 0.9 m/sec - MV deceleration time 143 msec - MV A-wave Vmax 1.1 m/sec - MV E:A ratio 0.8 ratio - Name Value Normal Range AV Vmax 1.4 m/sec - AV peak gradient 8 mmHg -
[2018-09-06] MEDS ORDERED: cefTRIAXone(*) 2 GM in NS 0.9% 100 ML* 100 ML IVPB SCH (18:00)
[2018-09-06] MEDS: Insulin GLARGINE(*) 1 UNITS UNIT SUBCUT SCH (21:55)
[2018-09-06] MEDS ORDERED: Insulin LISPRO* 1 UNITS UNIT SUBCUT ONE ×2 (22:00→23:00)
[2018-09-07] MEDS: NS 0.9% w/ 40 Meq KCL 1000 ML* 1,000 ML IV SCH (02:10)
[2018-09-07 05:42] LABS: Hematocrit 30 % (35-47); Hemoglobin 10.4 g/dl (12.0-16.0); Mean Corpuscular HGB Conc 35 g/dl (31-36); Mean Corpuscular Hemoglobin 28 pg (27-31); Mean Corpuscular Volume 81 fL (80-97); Mean Platelet Volume 7.6 fL (7.4-10.4); Platelet Count 125 10^3/ul (150-450); Red Blood Count 3.68 10^6/ul (4.00-5.40); Red Cell Distribution Width 16 % (10.5-15); White Blood Count 6.1 10^3/ul (3.5-10.8)
[2018-09-07 05:58] LABS: EGFR Non-African American 71.9 (>60)
[2018-09-07 06:33] LABS: Monocytes % 7 % (0-7)
[2018-09-07 09:28] VITALS: BP 129/73
[2018-09-07] MEDS: Pancrelipase CAP* 5,000 UNITS CAP PO SCH ×2 (09:49→12:33)
[2018-09-07] MEDS: Metoprolol Succinate XL TAB* 25 MG PO SCH (09:49)
[2018-09-07] MEDS: amLODIPine TAB* 5 MG PO SCH (09:49)
[2018-09-07] MEDS: Omeprazole CAP* 20 MG PO SCH (09:49)
[2018-09-07] MEDS: Lisinopril TAB* 10 MG PO SCH (09:49)
[2018-09-07] MEDS: Citalopram TAB* 20 MG PO SCH (09:49)
[2018-09-07] MEDS ORDERED: cefTRIAXone(*) 2 GM in NS 0.9% 100 ML* 100 ML IVPB SCH (12:00)
== END 2018-09-07 13:00 | disposition home or self-care (01) | DRG 724 ==
LOC: ED 11:45 → MED 17:33
PROVIDERS: ADMIT Internal Medicine Hematology & Oncology; ATTEND Internal Medicine Hematology & Oncology
PROC: 30233N1 Transfusion of Nonautologous Red Blood Cells into Peripheral Vein, Percutaneous Approach (ICD-10-PCS; principal; 2018-09-05)
PROC: B24BZZ4 Ultrasonography of Heart with Aorta, Transesophageal (ICD-10-PCS; 2018-09-06)
DX: R78.81 Bacteremia (principal); C25.9 Malignant neoplasm of pancreas, unspecified; C78.7 Secondary malignant neoplasm of liver and intrahepatic bile duct; D64.9 Anemia, unspecified; M19.042 Primary osteoarthritis, left hand; M19.041 Primary osteoarthritis, right hand; M17.0 Bilateral primary osteoarthritis of knee; K21.9 Gastro-esophageal reflux disease without esophagitis; E78.00 Pure hypercholesterolemia, unspecified; I10 Essential (primary) hypertension; R63.4 Abnormal weight loss; E86.0 Dehydration; R94.5 Abnormal results of liver function studies; E11.9 Type 2 diabetes mellitus without complications; B95.4 Other streptococcus as the cause of diseases classified elsewhere; K57.90 Diverticulosis of intestine, part unspecified, without perforation or abscess without bleeding; K44.9 Diaphragmatic hernia without obstruction or gangrene; F32.9 Major depressive disorder, single episode, unspecified; F41.9 Anxiety disorder, unspecified; Z83.3 Family history of diabetes mellitus; Z91.013 Allergy to seafood; Z91.041 Radiographic dye allergy status; Z82.49 Family history of ischemic heart disease and other diseases of the circulatory system; Z68.28 Body mass index [BMI] 28.0-28.9, adult
CPT/HCPCS: 36415; 71045; 74177; 80053; 81003; 82272; 82947; 83605; 83735; 85025; 85610; 85652; 85730; 86078; 86140; 86850; 86900; 86901; 86922; 87040; 87045; 87046; 87070; 87899; 93005; 93312; 93325; 99156; 99223; 99233; 99238; 99284; A9270-GY; J0696; J1200; J1642; J2250; J2310; J3010; J3475; J7512; P9040; Q9967

== ENCOUNTER 2018-10-06 17:48 | Observation (INO) | payer BC ==
[2018-10-06] MEDS ORDERED: Metoclopramide IV* 5 MG/ML 2 ML VIAL IV PRN (17:50)
[2018-10-06] MEDS ORDERED: Ondansetron ODT TAB* 4 MG PO PRN (17:50)
[2018-10-06] MEDS ORDERED: Magnesium Sulfate 2 GM IV* 2 GM/50 ML BAG IVPB ONE (17:50)
[2018-10-06] MEDS ORDERED: LORazepam INJ* 2 MG/ML 1 ML VIAL IV PUSH PRN (17:50)
[2018-10-06] MEDS ORDERED: Loperamide CAP* 2 MG PO PRN (17:59)
[2018-10-06] MEDS ORDERED: Diphenoxylat/Atrop 2.5-0.025M* 1 TAB PO PRN (17:59)
[2018-10-06] MEDS ORDERED: Enoxaparin(*) 40 MG/0.4 ML SYR SUBCUT SCH (18:00)
[2018-10-06] MEDS ORDERED: Dextrose 50% Syringe 50 ML* 25 GM/50 ML SYRINGE IV PUSH PRN (18:02)
[2018-10-06] MEDS: NS 0.9% 1000 ML* 1,000 ML IV SCH (18:27)
[2018-10-06] MEDS: Ondansetron INJ* 2 MG/ML VIAL IV PRN (19:31)
[2018-10-06] MEDS ORDERED: Insulin GLARGINE(*) 1 UNITS UNIT SUBCUT SCH (21:00)
[2018-10-06] MEDS: Metoprolol Succinate XL TAB* 25 MG PO SCH (21:02)
[2018-10-07] MEDS: NS 0.9% 1000 ML* 1,000 ML IV SCH (05:50)
[2018-10-07 05:54] LABS: Hematocrit 26 % (35-47); Hemoglobin 8.7 g/dl (12.0-16.0); Mean Corpuscular HGB Conc 34 g/dl (31-36); Mean Corpuscular Hemoglobin 29 pg (27-31); Mean Corpuscular Volume 86 fL (80-97); Mean Platelet Volume 6.9 fL (7.4-10.4); Platelet Count 151 10^3/ul (150-450); Red Blood Count 2.98 10^6/ul (4.00-5.40); Red Cell Distribution Width 18 % (10.5-15)
[2018-10-07 06:13] LABS: Albumin 2.9 g/dL (3.2-5.2); Albumin/Globulin Ratio 1.3 (1-3); BUN/Creatinine Ratio 12.3 (8-20); EGFR Non-African American 71.9 (>60); Globulin 2.3 g/dL (2-4); Magnesium 2.2 mg/dL (1.9-2.7); Potassium 3.5 mmol/L (3.5-5.0); Total Bilirubin 0.4 mg/dL (0.2-1.0); Total Protein 5.2 g/dL (6.4-8.9)
[2018-10-07 06:33] LABS: ABS Basophils 0 10^3/ul (0-0.2); ABS Eosinophils 0 10^3/ul (0-0.6); ABS Lymphocytes 0.9 10^3/ul (1.0-4.8); ABS Monocytes 0.8 10^3/ul (0-0.8); ABS Neutrophils 4.1 10^3/ul (1.5-7.7); ABS Nucleated RBC 0 10^3/ul
[2018-10-07 06:35] LABS: Immature Granulocytes 4 % (0-9); Lymphocytes % 18 %; Monocytes % 7 %; Neutrophil % 70 %
[2018-10-07 06:36] LABS: Nucleated Red Blood Cells/100 2 (0-0); Polychromasia 2+
[2018-10-07 06:37] LABS: ABS Neutrophils 4.4 10^3/ul (1.5-7.7)
[2018-10-07 06:38] LABS: ABS Eosinophils 0.1 10^3/ul (0-0.6)
[2018-10-07] MEDS: Insulin LISPRO* 1 UNITS UNIT SUBCUT SCH ×3 (07:41→16:29)
[2018-10-07] MEDS: Metoprolol Succinate XL TAB* 25 MG PO SCH (07:53)
[2018-10-07] MEDS: Pancrelipase CAP* 5,000 UNITS CAP PO SCH ×4 (07:55→16:29)
[2018-10-07] MEDS: Ondansetron INJ* 2 MG/ML VIAL IV PRN (07:55)
[2018-10-07] MEDS ORDERED: amLODIPine TAB* 5 MG PO SCH (09:00)
[2018-10-07] MEDS ORDERED: Famotidine TAB* 20 MG PO SCH (09:00)
[2018-10-07] MEDS ORDERED: Lisinopril TAB* 10 MG PO SCH (09:00)
[2018-10-07] MEDS ORDERED: Citalopram TAB* 20 MG PO SCH (09:00)
--- NOTE | 2018-10-07 10:25 | PN ---
Progress Note - Progress Note Date of Service: 10/07/18 SOAP: Subjective: [Admitted yesterday with intractable nausea and vomiting. Feeling better this am, but still mildly nauseous. Tolerating clear liquids well. She is feeling weak and concerned about her Hgb. She has had severe anemia with prior cycles.] Objective: [ Laboratory Results - last 24 hr 10/06/18 10/07/18 10/07/18 21:04 05:43 05:43 WBC 6.0 RBC 2.98 L Hgb 8.7 L Hct 26 L MCV 86 MCH 29 MCHC 34 RDW 18 H Plt Count 151 MPV 6.9 L Neut % (Auto) Not Reportable Lymph % (Auto) Not Reportable Moca % (Auto) Not Reportable Eos % (Auto) Not Reportable Baso % (Auto) Not Reportable Absolute Neuts (auto) 4.1 Absolute Lymphs (auto) 0.9 L Absolute Monos (auto) 0.8 Absolute Eos (auto) 0 Absolute Basos (auto) 0 Absolute Nucleated RBC 0 Immature Gran % 4 Neutrophils % 70 Band Neutrophils % 4 Lymphocytes % 18 Monocytes % 7 Eosinophils % 1 Nucleated RBC % Not Reportable Abs Neuts (Manual) 4.4 Abs Lymphs (Manual) 1.1 Abs Monocytes (Manual) 0.4 Absolute Eos (Manual) 0.1 Nucleated RBCs/100 WBC 2 H Normal RBC Morphology Not Reportable Polychromasia 2+ Anisocytosis 2+ Elliptocytes 1+ Sodium 139 Potassium 3.5 Chloride 109 Carbon Dioxide 27 Anion Gap 3 BUN 10 Creatinine 0.81 Est GFR ( Amer) 87.0 Est GFR (Non-Af Amer) 71.9 BUN/Creatinine Ratio 12.3 Glucose 86 POC Glucose (mg/dL) 269 H Calcium 8.0 L Magnesium 2.2 Total Bilirubin 0.40 AST 14 ALT 7 Alkaline Phosphatase 85 Total Protein 5.2 L Albumin 2.9 L Globulin 2.3 Albumin/Globulin Ratio 1.3 10/07/18 07:19 WBC RBC Hgb Hct MCV MCH MCHC RDW Plt Count MPV Neut % (Auto) Lymph % (Auto) Moca % (Auto) Eos % (Auto) Baso % (Auto) Absolute Neuts (auto) Absolute Lymphs (auto) Absolute Monos (auto) Absolute Eos (auto) Absolute Basos (auto) Absolute Nucleated RBC Immature Gran % Neutrophils % Band Neutrophils % Lymphocytes % Monocytes % Eosinophils % Nucleated RBC % Abs Neuts (Manual) Abs Lymphs (Manual) Abs Monocytes (Manual) Absolute Eos (Manual) Nucleated RBCs/100 WBC Normal RBC Morphology Polychromasia Anisocytosis Elliptocytes Sodium Potassium Chloride Carbon Dioxide Anion Gap BUN Creatinine Est GFR ( Amer) Est GFR (Non-Af Amer) BUN/Creatinine Ratio Glucose POC Glucose (mg/dL) 61 L Calcium Magnesium Total Bilirubin AST ALT Alkaline Phosphatase Total Protein Albumin Globulin Albumin/Globulin Ratio Amlodipine Besylate (Norvasc Tab*) 10 mg PO QAM [facility] Last Admin: 10/07/18 07:50 Dose: 10 mg Citalopram Hydrobromide (Celexa Tab*) 20 mg PO DAILY [facility] Last Admin: 10/07/18 07:53 Dose: Not Given Dextrose (D50w Syringe 50 Ml*) 12.5 gm IV PUSH .FOR FS < 60 - SS PRN PRN Reason: FS < 60 Diphenoxylate HCl/Atropine (Lomotil Tab*) 1 tab PO QID PRN PRN Reason: DIARRHEA Enoxaparin Sodium (Lovenox(*)) 40 mg SUBCUT Q24H [facility] Last Admin: 10/06/18 19:33 Dose: 40 mg Famotidine (Pepcid Tab*) 20 mg PO DAILY [facility] Last Admin: 10/07/18 07:53 Dose: 20 mg Heparin Sodium (Porcine) (Heparin Flush Port (Ivad)) 5 ml FLUSH DAILY [facility]; Protocol Last Admin: 10/07/18 08:13 Dose: Not Given Sodium Chloride (Ns 0.9% 1000 Ml*) 1,000 mls @ 100 mls/hr IV PER RATE [facility] Last Admin: 10/07/18 05:50 Dose: 100 mls/hr Insulin Glargine (Lantus(*)) 20 units SUBCUT BEDTIME [facility] Last Admin: 10/06/18 21:05 Dose: 20 units Insulin Human Lispro (Humalog*) 0 units SUBCUT AC [facility]; Protocol Last Admin: 10/07/18 07:41 Dose: Not Given Lisinopril (Prinivil Tab*) 20 mg PO DAILY [facility] Last Admin: 10/07/18 07:53 Dose: 20 mg Loperamide HCl (Imodium Cap*) 2 mg PO Q4H PRN PRN Reason: DIARRHEA Lorazepam (Ativan Inj*) 0.5 mg IV PUSH Q4H PRN PRN Reason: nausea/anxiety/insomnia Metoclopramide HCl (Reglan Iv*) 10 mg IV Q6H PRN PRN Reason: NAUSEA/VOMITING Metoprolol Succinate (Toprol Xl Tab*) 25 mg PO BID [facility] Last Admin: 10/07/18 07:53 Dose: 25 mg Ondansetron HCl (Zofran Inj*) 4 mg IV Q4H PRN PRN Reason: NAUSEA/VOMITING Last Admin: 10/07/18 07:55 Dose: 4 mg Ondansetron HCl (Zofran Odt Tab*) 4 mg PO Q6H PRN PRN Reason: NAUSEA Pancrelipase (Zenpep Delayed Cap*) 45,000 units PO TID AC [facility] Last Admin: 10/07/18 07:55 Dose: 45,000 units Vital Signs: Temp Pulse Resp BP Pulse Ox 98.7 F 69 18 145/76 97 10/07/18 07:18 10/07/18 07:18 10/07/18 08:00 10/07/18 07:18 10/07/18 07:18 Exam Gen: 62 yo female in NAD HEENT: MMM, no thrush CV: RRR, no m/r/g Resp: CTA, no w/c/r Abd: soft, non TTP Ext: no edema] Assessment: [62 yo female with metastatic pancreatic CA who is currently on palliative chemotherapy. Admitted with intractable nausea and vomiting, likely due to gastroenteritis.] Plan: [1. Gastroenteritis - cont to advance diet as tolerated - cont prn antiemetics and IVF 2. Anemia - likely related to chemotherapy - transfuse 1U PRBCs 3. Pancreatic CA - plan to cont treatment with gemcitabine/abraxane Dispo: dc home later today or tomorrow am, re-evaluate following lunch and transfusion]
[2018-10-07 14:37] VITALS: BP 129/64
--- NOTE | 2018-10-08 09:29 | DS ---
DISCHARGE SUMMARY: DATE OF ADMISSION: 10/06/18. DATE OF DISCHARGE: 10/07/18. PRIMARY CARE PHYSICIAN: Dr. Decker. PRIMARY ONCOLOGIST: Dr. Andreas Dodge.* (DICTATED BY KERVIN JOHNSON) DISCHARGING PROVIDER: KERVIN Johnson. DISCHARGE DIAGNOSES: 1. Gastroenteritis with intractable nausea and vomiting. 2. Metastatic pancreatic cancer, on palliative chemotherapy. 3. Insulin-dependent diabetes. DISCHARGE MEDICATIONS: 1. Amlodipine 10 mg p.o. daily. 2. Calcium and vitamin D one tablet p.o. daily. 3. Celexa 20 mg p.o. daily. 4. Lomotil one tablet p.o. four times daily as needed for diarrhea. 5. NovoLog 1 to 8 units subcu at mealtime per sliding scale. 6. Lantus 20 units subcu daily. 7. Lisinopril 20 mg p.o. daily. 8. Imodium 2 mg p.o. q.4 hours as needed for diarrhea. 9. Meclizine 12.5 mg p.o. b.i.d. as needed for dizziness. 10. Metoprolol succinate 25 mg p.o. twice daily. 11. Ondansetron 4 mg p.o. q.8 hours as needed for nausea and vomiting. 12. Creon 48,000 units p.o. with meals. 13. Potassium chloride 20 mEq p.o. daily. 14. Turmeric root 500 mg p.o. daily. 15. Aspirin 81 mg p.o. daily. 16. Lipitor 40 mg p.o. daily. 17. Clotrimazole 10 mg p.o. four times daily. 18. Magnesium chloride 64 mg p.o. twice daily. MEDICATION CHANGES: None. HOSPITAL IMAGING: None. HOSPITAL COURSE: This is a 62-year-old female with metastatic pancreatic cancer , who recently resumed palliative chemotherapy with gemcitabine and Abraxane. She has actually been tolerating treatment quite well and has not had any significant nausea or vomiting. She reports that she was at a [employer] on the evening of the and awoke overnight with severe nausea and vomiting and diarrhea. She was unable to control her symptoms at home and came into the oncology clinic for further evaluation. She received IV fluids and IV antiemetics, but continued to feel quite ill despite this and was subsequently admitted to a period of observation in the hospital. Labs were unremarkable with the exception of hypomagnesemia, which was replaced IV and mild anemia with an initial hemoglobin of 9.6 g/dL and the following day 8.7. She has had severe anemia associated with prior cycles of chemotherapy and was feeling weak despite IV fluids and antiemetics overnight. She felt that she would benefit from a blood transfusion and was subsequently given 1 unit of packed red blood cells. DISPOSITION AND FOLLOW-UP PLAN: At the time of discharge, the patient is able to tolerate to a soft diet without vomiting and is only mildly nauseous. Medications are continued as above. She did receive 1 unit of packed red blood cells during this hospitalization with a pretransfusion hemoglobin of 8.7 g/dL. We will plan to continue her current treatment regimen without interruption. She will be seen in the oncology office with her next treatment cycle and will call us if she needs to be seen sooner. KERVIN JOHNSON [id number]/[facility] #: [id number] MTDD
== END 2018-10-07 16:45 | disposition home or self-care (01) ==
LOC: MED 18:22
PROVIDERS: ADMIT Internal Medicine Hematology & Oncology; ATTEND Internal Medicine Hematology & Oncology
DX: K52.9 Noninfective gastroenteritis and colitis, unspecified (principal); C25.9 Malignant neoplasm of pancreas, unspecified; R11.2 Nausea with vomiting, unspecified; M17.10 Unilateral primary osteoarthritis, unspecified knee; E11.9 Type 2 diabetes mellitus without complications; K21.9 Gastro-esophageal reflux disease without esophagitis; E78.00 Pure hypercholesterolemia, unspecified; I10 Essential (primary) hypertension; Z79.82 Long term (current) use of aspirin; Z92.21 Personal history of antineoplastic chemotherapy; Z79.4 Long term (current) use of insulin
CPT/HCPCS: 36415; 36430; 80053; 83735; 85025; 86850; 86900; 86901; 86922; 96365; 96366; 96372; 96375; A9270-GY; G0378; J1642; J1650; J2405; J3475; P9040

== ENCOUNTER 2018-10-10 14:23 | Inpatient (IN) | payer BC ==
[2018-10-10] MEDS ORDERED: Ondansetron ODT TAB* 4 MG SL PRN (14:27)
[2018-10-10] MEDS ORDERED: LORazepam INJ* 2 MG/ML 1 ML VIAL IV PUSH PRN (14:27)
[2018-10-10] MEDS ORDERED: Famotidine IV * 20 MG in NS 0.9% 100 ML* 100 ML IV ONE (14:31)
[2018-10-10] MEDS ORDERED: Dextrose 50% Syringe 50 ML* 25 GM/50 ML SYRINGE IV PUSH PRN (14:34)
[2018-10-10] MEDS ORDERED: Famotidine IV* 10 MG/ML 2 ML (20 mg) IV SLOW PU ONE (15:00)
[2018-10-10] MEDS ORDERED: NS 0.9% w/ 20 Meq KCL 1000 ML* 1,000 ML IV SCH (15:00)
[2018-10-10] MEDS ORDERED: Pancrelipase CAP* 5,000 UNITS CAP PO PRN (16:30)
[2018-10-10] MEDS: Enoxaparin(*) 40 MG/0.4 ML SYR SUBCUT SCH (16:54)
[2018-10-10] MEDS: Metoclopramide IV* 5 MG/ML 2 ML VIAL IV SCH ×2 (16:58→21:31)
[2018-10-10] MEDS: Insulin LISPRO* 1 UNITS UNIT SUBCUT SCH ×2 (17:48→21:35)
[2018-10-10] MEDS: Metoprolol Succinate XL TAB* 25 MG PO SCH (21:31)
[2018-10-10] MEDS: Insulin GLARGINE(*) 1 UNITS UNIT SUBCUT SCH (21:36)
[2018-10-10 21:59] LABS: Urine Appearance Cloudy; Urine Bacteria Absent (Absent); Urine Bilirubin Negative (Negative); Urine Blood Negative (Negative); Urine Color Yellow; Urine Glucose Negative (Negative); Urine Ketones 1+ (Negative); Urine Nitrite Negative (Negative); Urine Protein 2+(100 mg/dL) (Negative); Urine Red Blood Cell Absent (Absent); Urine Specific Gravity 1.023 (1.010-1.030); Urine Urobilinogen Negative (Negative); Urine White Blood Cell Absent (Absent)
[2018-10-11 06:16] LABS: ABS Basophils 0.1 10^3/ul (0-0.2); ABS Eosinophils 0.2 10^3/ul (0-0.6); ABS Lymphocytes 0.9 10^3/ul (1.0-4.8); ABS Monocytes 0.8 10^3/ul (0-0.8); ABS Neutrophils 2.9 10^3/ul (1.5-7.7); ABS Nucleated RBC 0 10^3/ul; Eosinophil % 4.5 %; Hematocrit 31 % (35-47); Hemoglobin 10.6 g/dl (12.0-16.0); Lymphocyte % 19.2 %; Mean Corpuscular HGB Conc 34 g/dl (31-36); Mean Corpuscular Hemoglobin 29 pg (27-31); Mean Corpuscular Volume 86 fL (80-97); Nucleated Red Blood Cells % 0; Platelet Count 278 10^3/ul (150-450); Red Blood Count 3.63 10^6/ul (4.00-5.40); Red Cell Distribution Width 18 % (10.5-15); White Blood Count 4.9 10^3/ul (3.5-10.8)
[2018-10-11 06:30] LABS: Albumin 2.8 g/dL (3.2-5.2); Calcium 8.2 mg/dL (8.6-10.3); Magnesium 1.6 mg/dL (1.9-2.7); Potassium 3.4 mmol/L (3.5-5.0); Total Bilirubin 0.5 mg/dL (0.2-1.0)
[2018-10-11 06:36] LABS: Albumin/Globulin Ratio 1.6 (1-3); BUN/Creatinine Ratio 25.6 (8-20); EGFR Non-African American 63.7 (>60); Globulin 1.8 g/dL (2-4); Total Protein 4.6 g/dL (6.4-8.9)
[2018-10-11] MEDS: Metoclopramide IV* 5 MG/ML 2 ML VIAL IV SCH (07:39)
[2018-10-11] MEDS: Metoprolol Succinate XL TAB* 25 MG PO SCH ×2 (07:59→20:58)
[2018-10-11] MEDS: Citalopram TAB* 20 MG PO SCH (07:59)
[2018-10-11] MEDS: amLODIPine TAB* 5 MG PO SCH (07:59)
[2018-10-11] MEDS: Insulin LISPRO* 1 UNITS UNIT SUBCUT SCH ×4 (08:07→21:31)
[2018-10-11] MEDS: Diphenoxylat/Atrop 2.5-0.025M* 1 TAB PO PRN ×2 (08:10→21:05)
[2018-10-11] MEDS ORDERED: Magnesium Sulfate IV* 3 GM in NS 0.9% 100 ML* 100 ML IVPB ONE (09:00)
[2018-10-11] MEDS ORDERED: Lisinopril TAB* 10 MG PO SCH (09:00)
--- NOTE | 2018-10-11 09:59 | PN ---
Progress Note - Progress Note Date of Service: 10/11/18 SOAP: Subjective: []A little better today. Some nausea overnight but eating well this am. No abdominal pain, has some diarrhea. No fevers. She feels nausea is anxiety. Last chemotherapy 09/28. She had had similar nausea end of July but improved after stating [place]/ Abraxane Amlodipine Besylate (Norvasc Tab*) 10 mg PO QAM [facility] Last Admin: 10/11/18 07:59 Dose: 10 mg Citalopram Hydrobromide (Celexa Tab*) 20 mg PO DAILY [facility] Last Admin: 10/11/18 07:59 Dose: 20 mg Dextrose (D50w Syringe 50 Ml*) 12.5 gm IV PUSH .FOR FS < 60 - SS PRN PRN Reason: FS < 60 Diphenoxylate HCl/Atropine (Lomotil Tab*) 1 tab PO QID PRN PRN Reason: DIARRHEA Last Admin: 10/11/18 08:10 Dose: 1 tab Enoxaparin Sodium (Lovenox(*)) 40 mg SUBCUT Q24H [facility] Last Admin: 10/10/18 16:54 Dose: 40 mg Heparin Sodium (Porcine) (Heparin Flush Port (Ivad)) 5 ml FLUSH DAILY [facility]; Protocol Last Admin: 10/11/18 08:12 Dose: Not Given Potassium Chloride/Sodium Chloride (Ns 0.9% W/ 40 Meq Kcl 1000 Ml*) 1,000 mls @ 100 mls/hr IV PER RATE [facility] Magnesium Sulfate 3 gm/ Sodium (Chloride) 106 mls @ 53 mls/hr IVPB ONCE ONE Stop: 10/11/18 10:59 Insulin Glargine (Lantus(*)) 20 units SUBCUT BEDTIME [facility] Last Admin: 10/10/18 21:36 Dose: 20 units Insulin Human Lispro (Humalog*) 0 units SUBCUT ACHS [facility]; Protocol Last Admin: 10/11/18 08:07 Dose: Not Given Lisinopril (Prinivil Tab*) 30 mg PO DAILY [facility] Lorazepam (Ativan Inj*) 0.5 mg IV PUSH Q4H PRN PRN Reason: nausea/anxiety Last Admin: 10/11/18 07:55 Dose: 0.5 mg Metoclopramide HCl (Reglan Iv*) 5 mg IV ACHS [facility] Last Admin: 12/25/18 07:39 Dose: 5 mg Metoprolol Succinate (Toprol Xl Tab*) 25 mg PO BID [facility] Last Admin: 10/11/18 07:59 Dose: 25 mg Ondansetron HCl (Zofran Inj*) 4 mg IV Q4H PRN PRN Reason: NAUSEA Ondansetron HCl (Zofran Odt Tab*) 4 mg SL Q6H PRN PRN Reason: NAUSEA Pancrelipase (Zenpep Delayed Cap*) 45,000 units PO TID AC PRN PRN Reason: FATTY MEAL Objective: [] Vital Signs Temp Pulse Resp BP Pulse Ox 97.4 F 63 16 218/100 98 10/11/18 03:32 10/11/18 03:32 10/11/18 09:27 10/11/18 07:20 10/11/18 03:32 HEENT OM dry but no lesions CAT RRR S1S2 +BS softer and NT No C/C/E Neuro - AAOx3 and non focal CT - No obstruction, central mass in liver may be larger then on 09/06 Assessment: []62 year old with nausea over past week of unclear etiology. I am concerned it is from progressive disease with occult peritoneal lesions. Ddx also includes anxiety, enteritis, CVA or NURSING EDUCATOR disease. Plan: []1. Will check tumor marker and if increased from 3 weeks ago, re-check CT with IVC. If radiographic progression may consider hospice. 2. Discussed nausea medication and will move to out-patient regimen. - Reglan to 10 mg po TID standing - Zyprexa 5 mg po qhs - Zofran 8 mg SL po q 6 prn - Ativan 1 mg po q 6 prn 3. Continue IVF and replete K and Mg 4. She is concerned about another stroke or cancer in brain, reasonable to check MRI w/ [facility] and [facility]
[2018-10-11] MEDS ORDERED: Ondansetron ODT TAB* 4 MG SL PRN (10:05)
[2018-10-11] MEDS: NS 0.9% w/ 40 Meq KCL 1000 ML* 1,000 ML IV SCH ×2 (10:11→21:20)
[2018-10-11] MEDS: Lisinopril TAB* 10 MG PO SCH (10:12)
[2018-10-11] MEDS: Enoxaparin(*) 40 MG/0.4 ML SYR SUBCUT SCH (14:19)
[2018-10-11] MEDS: Metoclopramide TAB* 10 MG PO SCH ×2 (14:19→20:58)
[2018-10-11] MEDS: OLANzapine TAB*ODT* 5 MG PO SCH (20:58)
[2018-10-11] MEDS: Insulin GLARGINE(*) 1 UNITS UNIT SUBCUT SCH (21:33)
[2018-10-12] MEDS: Insulin GLARGINE(*) 1 UNITS UNIT SUBCUT SCH ×2 (00:35→22:52)
[2018-10-12] MEDS: Ondansetron INJ* 2 MG/ML VIAL IV PRN ×2 (07:31→14:26)
[2018-10-12 07:34] LABS: ABS Basophils 0.1 10^3/ul (0-0.2); ABS Eosinophils 0.3 10^3/ul (0-0.6); ABS Lymphocytes 0.8 10^3/ul (1.0-4.8); ABS Monocytes 0.7 10^3/ul (0-0.8); ABS Neutrophils 2.9 10^3/ul (1.5-7.7); ABS Nucleated RBC 0 10^3/ul; Eosinophil % 7.3 %; Hematocrit 34 % (35-47); Hemoglobin 11.4 g/dl (12.0-16.0); Lymphocyte % 16.6 %; Mean Corpuscular HGB Conc 33 g/dl (31-36); Mean Corpuscular Hemoglobin 29 pg (27-31); Mean Corpuscular Volume 86 fL (80-97); Mean Platelet Volume 6.7 fL (7.4-10.4); Nucleated Red Blood Cells % 0.1; Platelet Count 328 10^3/ul (150-450); Red Blood Count 3.99 10^6/ul (4.00-5.40); Red Cell Distribution Width 19 % (10.5-15); White Blood Count 4.7 10^3/ul (3.5-10.8)
[2018-10-12] MEDS: Metoclopramide TAB* 10 MG PO SCH (07:41)
[2018-10-12] MEDS: Insulin LISPRO* 1 UNITS UNIT SUBCUT SCH ×4 (07:42→22:42)
[2018-10-12 07:44] LABS: Albumin 3.1 g/dL (3.2-5.2); Albumin/Globulin Ratio 1.4 (1-3); BUN/Creatinine Ratio 11.8 (8-20); Calcium 8.3 mg/dL (8.6-10.3); EGFR Non-African American 77.4 (>60); Globulin 2.2 g/dL (2-4); Magnesium 1.7 mg/dL (1.9-2.7); Potassium 3.4 mmol/L (3.5-5.0); Total Bilirubin 0.6 mg/dL (0.2-1.0); Total Protein 5.3 g/dL (6.4-8.9)
[2018-10-12] MEDS: Lisinopril TAB* 10 MG PO SCH (08:27)
[2018-10-12] MEDS: amLODIPine TAB* 5 MG PO SCH (08:28)
[2018-10-12] MEDS: Citalopram TAB* 20 MG PO SCH (08:28)
[2018-10-12] MEDS: Metoprolol Succinate XL TAB* 25 MG PO SCH ×2 (08:28→22:51)
[2018-10-12] MEDS: Diphenoxylat/Atrop 2.5-0.025M* 1 TAB PO PRN (08:35)
[2018-10-12] MEDS: Scopolamine 1.5 mg* PATCH TRANSDERM SCH (10:36)
--- NOTE | 2018-10-12 13:13 | CONSULT ---
Palliative / Hospice Consult Ordering Provider: Prashanth Decker - Subjective Code Status: Full Code Advance Directives Location: No Advance Directives - History or Present Illness History or Present Illness: 62 yo female who presents to hospital with uncontrolled nausea. She has metastatic pancreatic cancer with new liver lesions. Currently she is receiving palliative chemo. Her other medical problems include DM insulin dependent, s/p whipple procedure 10/01, TIA, HTN, arthritis, GI bleed, GERD and hypercholesterolemia. She was admitted 10/06/18 for 24 hr observation for nausea and now has been readmitted 10/10/18. Today she is undergoing an MRI to rule out lesions in her brain which maybe causing the nausea. Currently she is followed by oncology service. 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 She lives on her own has no children or partner. At this time she has no HCP or living will. Lab Values: Abnormal Lab Results 10/11/18 10/11/18 10/11/18 12:41 16:48 21:00 WBC RBC Hgb Hct MCV MCH MCHC RDW Plt Count MPV Neut % (Auto) Lymph % (Auto) [place] % (Auto) Eos % (Auto) Baso % (Auto) Absolute Neuts (auto) Absolute Lymphs (auto) Absolute Monos (auto) Absolute Eos (auto) Absolute Basos (auto) Absolute Nucleated RBC Nucleated RBC % Sodium Potassium Chloride Carbon Dioxide Anion Gap BUN Creatinine Est GFR ( Amer) Est GFR (Non-Af Amer) BUN/Creatinine Ratio Glucose POC Glucose (mg/dL) 118 H 81 151 H Calcium Magnesium Total Bilirubin AST ALT Alkaline Phosphatase Total Protein Albumin Globulin Albumin/Globulin Ratio 10/12/18 10/12/18 07:20 07:20 WBC 4.7 RBC 3.99 L Hgb 11.4 L Hct 34 L MCV 86 MCH 29 MCHC 33 RDW 19 H Plt Count 328 MPV 6.7 L Neut % (Auto) 60.3 Lymph % (Auto) 16.6 [place] % (Auto) 14.5 Eos % (Auto) 7.3 Baso % (Auto) 1.3 Absolute Neuts (auto) 2.9 Absolute Lymphs (auto) 0.8 L Absolute Monos (auto) 0.7 Absolute Eos (auto) 0.3 Absolute Basos (auto) 0.1 Absolute Nucleated RBC 0 Nucleated RBC % 0.1 Sodium 142 Potassium 3.4 L Chloride 111 Carbon Dioxide 26 Anion Gap 5 BUN 9 Creatinine 0.76 Est GFR ( Amer) 93.6 Est GFR (Non-Af Amer) 77.4 BUN/Creatinine Ratio 11.8 Glucose 76 POC Glucose (mg/dL) Calcium 8.3 L Magnesium 1.7 L Total Bilirubin 0.60 AST 20 ALT 11 Alkaline Phosphatase 75 Total Protein 5.3 L Albumin 3.1 L Globulin 2.2 Albumin/Globulin Ratio 1.4 Laboratory Last Values WBC 4.7 10^3/ul (3.5-10.8) 10/12/18 07:20 RBC 3.99 10^6/ul (4.00-5.40) L 10/12/18 07:20 Hgb 11.4 g/dl (12.0-16.0) L 10/12/18 07:20 Hct 34 % (35-47) L 10/12/18 07:20 MCV 86 fL (80-97) 10/12/18 07:20 MCH 29 pg (27-31) 10/12/18 07:20 MCHC 33 g/dl (31-36) 10/12/18 07:20 RDW 19 % (10.5-15) H 10/12/18 07:20 Plt Count 328 10^3/ul (150-450) 10/12/18 07:20 MPV 6.7 fL (7.4-10.4) L 10/12/18 07:20 Neut % (Auto) 60.3 % 10/12/18 07:20 Lymph % (Auto) 16.6 % 10/12/18 07:20 [place] % (Auto) 14.5 % 10/12/18 07:20 Eos % (Auto) 7.3 % 10/12/18 07:20 Baso % (Auto) 1.3 % 10/12/18 07:20 Absolute Neuts (auto) 2.9 10^3/ul (1.5-7.7) 10/12/18 07:20 Absolute Lymphs (auto) 0.8 10^3/ul (1.0-4.8) L 10/12/18 07:20 Absolute Monos (auto) 0.7 10^3/ul (0-0.8) 10/12/18 07:20 Absolute Eos (auto) 0.3 10^3/ul (0-0.6) 10/12/18 07:20 Absolute Basos (auto) 0.1 10^3/ul (0-0.2) 10/12/18 07:20 Absolute Nucleated RBC 0 10^3/ul 10/12/18 07:20 Nucleated RBC % 0.1 10/12/18 07:20 Sodium 142 mmol/L (135-145) 10/12/18 07:20 Potassium 3.4 mmol/L (3.5-5.0) L 10/12/18 07:20 Chloride 111 mmol/L (101-111) 10/12/18 07:20 Carbon Dioxide 26 mmol/L (22-32) 10/12/18 07:20 Anion Gap 5 mmol/L (2-11) 10/12/18 07:20 BUN 9 mg/dL (6-24) 10/12/18 07:20 Creatinine 0.76 mg/dL (0.51-0.95) 10/12/18 07:20 Est GFR ( Amer) 93.6 (>60) 10/12/18 07:20 Est GFR (Non-Af Amer) 77.4 (>60) 10/12/18 07:20 BUN/Creatinine Ratio 11.8 (8-20) 10/12/18 07:20 Glucose 76 mg/dL (70-100) 10/12/18 07:20 POC Glucose (mg/dL) 151 mg/dL (70-100) H 10/11/18 21:00 Calcium 8.3 mg/dL (8.6-10.3) L 10/12/18 07:20 Magnesium 1.7 mg/dL (1.9-2.7) L 10/12/18 07:20 Total Bilirubin 0.60 mg/dL (0.2-1.0) 10/12/18 07:20 AST 20 U/L (13-39) 10/12/18 07:20 ALT 11 U/L (7-52) 10/12/18 07:20 Alkaline Phosphatase 75 U/L (34-104) 10/12/18 07:20 Total Protein 5.3 g/dL (6.4-8.9) L 10/12/18 07:20 Albumin 3.1 g/dL (3.2-5.2) L 10/12/18 07:20 Globulin 2.2 g/dL (2-4) 10/12/18 07:20 Albumin/Globulin Ratio 1.4 (1-3) 10/12/18 07:20 Urine Color Yellow 10/10/18 16:05 Urine Appearance Cloudy 10/10/18 16:05 Urine pH 5.0 (5-9) 10/10/18 16:05 Ur Specific [place] 1.023 (1.010-1.030) 10/10/18 16:05 Urine Protein 2+(100 mg/dl) (Negative) A 10/10/18 16:05 Urine Ketones 1+ (Negative) A 10/10/18 16:05 Urine Blood Negative (Negative) 10/10/18 16:05 Urine Nitrate Negative (Negative) 10/10/18 16:05 Urine Bilirubin Negative (Negative) 10/10/18 16:05 Urine Urobilinogen Negative (Negative) 10/10/18 16:05 Ur Leukocyte Esterase Negative (Negative) 10/10/18 16:05 Urine WBC (Auto) Absent (Absent) 10/10/18 16:05 Urine RBC (Auto) Absent (Absent) 10/10/18 16:05 Ur Squamous Epith Cells Present (Absent) A 10/10/18 16:05 Urine Bacteria Absent (Absent) 10/10/18 16:05 Hyaline Casts Present (Absent) A 10/10/18 16:05 Urine Glucose Negative (Negative) 10/10/18 16:05 Urine Ascorbic Acid * (Negative) A 10/10/18 16:05 Influenza A (Rapid) Negative (Negative) 10/10/18 19:32 Influenza B (Rapid) Negative (Negative) 10/10/18 19:32 - Objective Active Medications: Amlodipine Besylate (Norvasc Tab*) 10 mg PO QAM [facility] Last Admin: 10/12/18 08:28 Dose: 10 mg Citalopram Hydrobromide (Celexa Tab*) 20 mg PO DAILY [facility] Last Admin: 10/12/18 08:28 Dose: 20 mg Dextrose (D50w Syringe 50 Ml*) 12.5 gm IV PUSH .FOR FS < 60 - SS PRN PRN Reason: FS < 60 Diphenoxylate HCl/Atropine (Lomotil Tab*) 1 tab PO QID PRN PRN Reason: DIARRHEA Last Admin: 10/12/18 08:35 Dose: 1 tab Enoxaparin Sodium (Lovenox(*)) 40 mg SUBCUT Q24H [facility] Last Admin: 10/11/18 14:19 Dose: 40 mg Heparin Sodium (Porcine) (Heparin Flush Port (Ivad)) 5 ml FLUSH DAILY [facility]; Protocol Last Admin: 10/12/18 08:39 Dose: Not Given Potassium Chloride/Sodium Chloride (Ns 0.9% W/ 40 Meq Kcl 1000 Ml*) 1,000 mls @ 100 mls/hr IV PER RATE [facility] Last Admin: 10/11/18 21:20 Dose: 100 mls/hr Insulin Glargine (Lantus(*)) 10 units SUBCUT 2100 [facility] Last Admin: 10/11/18 21:33 Dose: 10 units Insulin Human Lispro (Humalog*) 0 units SUBCUT ACHS [facility]; Protocol Last Admin: 10/12/18 07:42 Dose: Not Given Lisinopril (Prinivil Tab*) 30 mg PO DAILY [facility] Last Admin: 10/12/18 08:27 Dose: 30 mg Lorazepam (Ativan Tab(*)) 1 mg PO Q6H PRN PRN Reason: ANXIETY Metoprolol Succinate (Toprol Xl Tab*) 25 mg PO BID [facility] Last Admin: 10/12/18 08:28 Dose: 25 mg Olanzapine (Zyprexa * Tab Odt) 5 mg PO BEDTIME [facility] Last Admin: 10/11/18 20:58 Dose: 5 mg Ondansetron HCl (Zofran Inj*) 4 mg IV Q4H PRN PRN Reason: NAUSEA Last Admin: 10/12/18 07:31 Dose: 4 mg Ondansetron HCl (Zofran Odt Tab*) 8 mg SL Q6H PRN PRN Reason: NAUSEA Pancrelipase (Zenpep Delayed Cap*) 45,000 units PO TID AC PRN PRN Reason: FATTY MEAL Scopolamine (Transderm-Scop 1.5 Mg Patch*) 1 patch TRANSDERM Q72H [facility] Last Admin: 10/12/18 10:36 Dose: 1 patch Vital Signs: Vital Signs: Temp Pulse Resp BP Pulse Ox 98.3 F 63 12 186/92 100 10/12/18 07:40 10/12/18 07:40 10/12/18 11:09 10/12/18 07:40 10/12/18 07:40 Patient Weight: Weight 62.913 kg Intake and Output: Intake & Output 10/10/18 10/11/18 10/12/18 10/13/18 06:59 06:59 06:59 06:59 Intake Total 1340 3570 480 Output Total 600 Balance 740 3570 480 Weight 62.913 kg Intake: IV Fluids 2160 NS 2160 IVPB 980 110 Mag 110 NS 980 Oral 360 1300 480 Output: Urine 600 Other: # Bowel Movements 1 0 Estimated Stool Amount Medium # Voids 0 ADLs: Meal Record Start: 10/10/18 15: 16 Freq: DAILY@0900,1400,1800 Status: Active Protocol: Created 10/10/18 15:16 System (Rec: 10/10/18 15:16 System DIET-C05) Document 10/10/18 18:00 [id number] (Rec: 10/10/18 18:34 [id number] MED-C02) Document 10/11/18 09:00 [id number] (Rec: 10/11/18 09:05 [id number] MED-C09) Document 10/11/18 13:19 [id number] (Rec: 10/11/18 13:19 [id number] MED-C09) Document 10/11/18 18:00 [id number] (Rec: 10/11/18 20:58 [id number] MED-C09) Document 10/12/18 09:00 [id number] (Rec: 10/12/18 09:19 [id number] MED-C09) Intake and Output Start: 10/10/18 15: 16 Freq: DAILY@0600,1400,2200 Status: Active Protocol: Created 10/10/18 15:16 System (Rec: 10/10/18 15:16 System DIET-C05) Document 10/10/18 21:55 [id number] (Rec: 10/10/18 21:57 [id number] MED-C02) Document 10/11/18 05:50 [id number] (Rec: 10/11/18 05:50 [id number] MED-C11) Document 10/11/18 14:00 [id number] (Rec: 10/11/18 15:01 [id number] MED-C09) Document 10/11/18 21:56 [id number] (Rec: 10/11/18 21:58 [id number] [facility] Document 10/12/18 05:46 [id number] (Rec: 10/12/18 05:47 [id number] MED-C09) Head: Normal Eyes: No Scleral Icterus Ears/Nose/Mouth/Throat: NL Teeth, Lips, Gums Neck: NL Appearance and Movements; NL JVP Cardiovascular: NL Sounds; No Murmurs; No JVD Respiratory: Clear to Auscultation Abdominal: NL Sounds; No Tenderness; No Distention - Assessment Assessment: 62 yo female with metastatic pancreatic cancer with uncontrolled nausea. - Plan Consult Plan (MU): Hospice Plan: Long discussion with patient about her treatment goals/options. Currently she is a full code. She has a MOLST form at home but it is not filled out. She has requested one here which I gave her. She has not chosen a HCP or completed a living will. She is aware that her pancreatic cancer will cause her and she does want to at [facility] when it is her time. As of now she is not able to make a decision about DNR/DNI. I explained the MOLST form with her and explained that she has the ability to determine how much intervention she wants and it can be changed at anytime. She is reluctant to make these decisions because in the past she has lived beyond her cancer prognostications. She is aware that this new problem of nausea may be the beginning of a terminal decline. I also explained about hospice certification and if she lives beyond the 6 months she can leave or be recertifed depending on how she is doing. Also , she can leave hospice at anytime. Pt feels she is not dying yet so she doesn' t need to make these decisions. I stressed it is very helpful to have a HCP going forward. She has many close friends. She is eligible for hospice when she is ready. Thank you for this consult. - Time On Unit Date of Evaluation: 10/12/18 Hospice Consult Time in: 11:30 Hospice Consult Time Out: 01:00 Hospice Consult Time Total: -630 > 50% of Time Spend In Counseling or Coordinating Care: Yes
[2018-10-12] MEDS: Enoxaparin(*) 40 MG/0.4 ML SYR SUBCUT SCH (14:26)
[2018-10-12] MEDS: LORazepam TAB(*) 1 MG PO PRN (17:26)
[2018-10-12] MEDS: NS 0.9% w/ 40 Meq KCL 1000 ML* 1,000 ML IV SCH (22:36)
[2018-10-12] MEDS: OLANzapine TAB*ODT* 5 MG PO SCH (22:51)
[2018-10-13 06:10] LABS: BUN/Creatinine Ratio 6.4 (8-20); Calcium 8.2 mg/dL (8.6-10.3); EGFR Non-African American 75.1 (>60); Magnesium 1.3 mg/dL (1.9-2.7); Potassium 3.9 mmol/L (3.5-5.0)
[2018-10-13 07:09] LABS: ABS Basophils 0.1 10^3/ul (0-0.2); ABS Eosinophils 0.2 10^3/ul (0-0.6); ABS Lymphocytes 0.8 10^3/ul (1.0-4.8); ABS Monocytes 0.6 10^3/ul (0-0.8); ABS Neutrophils 3.4 10^3/ul (1.5-7.7); ABS Nucleated RBC 0 10^3/ul; Eosinophil % 4.3 %; Hematocrit 29 % (35-47); Hemoglobin 9.8 g/dl (12.0-16.0); Mean Corpuscular HGB Conc 34 g/dl (31-36); Mean Corpuscular Hemoglobin 29 pg (27-31); Mean Corpuscular Volume 86 fL (80-97); Nucleated Red Blood Cells % 0.1; Platelet Count 297 10^3/ul (150-450); Red Blood Count 3.36 10^6/ul (4.00-5.40); Red Cell Distribution Width 19 % (10.5-15); White Blood Count 5.1 10^3/ul (3.5-10.8)
[2018-10-13] MEDS: Insulin LISPRO* 1 UNITS UNIT SUBCUT SCH ×4 (07:12→22:30)
[2018-10-13] MEDS ORDERED: Magnesium Sulf 4 GM/100 ML IV* 4,000 MG/100 ML BAG IVPB ONE (08:11)
--- NOTE | 2018-10-13 09:46 | PN ---
Progress Note - Progress Note Date of Service: 10/13/18 SOAP: Subjective: []Still nauseated but has not been throwing up. Doesn't like eating as she feels worse after eating. Can only tolerate small amt.'s. Still having some diarrhea. No real cramping but urgency. Hasn't had any anti-emetics this AM as she did not request any of her PRNs. Asking appropriate questions regarding prognosis and current situation. Medications: Amlodipine Besylate (Norvasc Tab*) 10 mg PO QAM [facility] Last Admin: 10/12/18 08:28 Dose: 10 mg Citalopram Hydrobromide (Celexa Tab*) 20 mg PO DAILY [facility] Last Admin: 10/12/18 08:28 Dose: 20 mg Dextrose (D50w Syringe 50 Ml*) 12.5 gm IV PUSH .FOR FS < 60 - SS PRN PRN Reason: FS < 60 Diphenoxylate HCl/Atropine (Lomotil Tab*) 1 tab PO QID PRN PRN Reason: DIARRHEA Last Admin: 10/12/18 08:35 Dose: 1 tab Enoxaparin Sodium (Lovenox(*)) 40 mg SUBCUT Q24H [facility] Last Admin: 10/12/18 14:26 Dose: 40 mg Heparin Sodium (Porcine) (Heparin Flush Port (Ivad)) 5 ml FLUSH DAILY [facility]; Protocol Last Admin: 10/12/18 08:39 Dose: Not Given Potassium Chloride/Sodium Chloride (Ns 0.9% W/ 40 Meq Kcl 1000 Ml*) 1,000 mls @ 100 mls/hr IV PER RATE [facility] Last Admin: 10/12/18 22:36 Dose: 100 mls/hr Magnesium Sulfate (Magnesium Sulf 4 Gm/100 Ml Iv*) 4,000 mg in 100 mls @ 33.333 mls/hr IVPB ONCE ONE Stop: 10/13/18 11:10 Insulin Glargine (Lantus(*)) 10 units SUBCUT 2100 [facility] Last Admin: 10/12/18 22:52 Dose: 10 units Insulin Human Lispro (Humalog*) 0 units SUBCUT ACHS [facility]; Protocol Last Admin: 10/13/18 07:12 Dose: Not Given Lisinopril (Prinivil Tab*) 30 mg PO DAILY [facility] Last Admin: 10/12/18 08:27 Dose: 30 mg Lorazepam (Ativan Tab(*)) 1 mg PO Q6H PRN PRN Reason: ANXIETY Last Admin: 10/12/18 17:26 Dose: 1 mg Metoprolol Succinate (Toprol Xl Tab*) 25 mg PO BID [facility] Last Admin: 10/12/18 22:51 Dose: 25 mg Olanzapine (Zyprexa * Tab Odt) 5 mg PO BEDTIME [facility] Last Admin: 10/12/18 22:51 Dose: 5 mg Ondansetron HCl (Zofran Inj*) 4 mg IV Q4H PRN PRN Reason: NAUSEA Last Admin: 10/12/18 14:26 Dose: 4 mg Ondansetron HCl (Zofran Odt Tab*) 4 mg SL AC [facility] Pancrelipase (Zenpep Delayed Cap*) 45,000 units PO TID AC PRN PRN Reason: FATTY MEAL Scopolamine (Transderm-Scop 1.5 Mg Patch*) 1 patch TRANSDERM Q72H [facility] Last Admin: 10/12/18 10:36 Dose: 1 patch Objective: [] Vital Signs Temp Pulse Resp BP Pulse Ox 98.1 F 60 18 124/79 98 10/13/18 07:13 10/13/18 07:13 10/13/18 07:13 10/13/18 07:13 10/13/18 07:13 A&Ox3, EOMI, neuro grossly non-focal HRR, S1S2 LS clear bilat., Hypoactive BS, soft and non-tender Laboratory Results - last 24 hr 10/12/18 10/12/18 10/12/18 07:38 13:03 17:26 WBC RBC Hgb Hct MCV MCH MCHC RDW Plt Count MPV Neut % (Auto) Lymph % (Auto) [place] % (Auto) Eos % (Auto) Baso % (Auto) Absolute Neuts (auto) Absolute Lymphs (auto) Absolute Monos (auto) Absolute Eos (auto) Absolute Basos (auto) Absolute Nucleated RBC Nucleated RBC % Sodium Potassium Chloride Carbon Dioxide Anion Gap BUN Creatinine Est GFR ( Amer) Est GFR (Non-Af Amer) BUN/Creatinine Ratio Glucose POC Glucose (mg/dL) 79 121 H 82 Calcium Magnesium 10/12/18 10/13/18 10/13/18 22:42 05:45 06:40 WBC 5.1 RBC 3.36 L Hgb 9.8 L Hct 29 L MCV 86 MCH 29 MCHC 34 RDW 19 H Plt Count 297 MPV 7.0 L Neut % (Auto) 67.1 Lymph % (Auto) 15.0 [place] % (Auto) 12.2 Eos % (Auto) 4.3 Baso % (Auto) 1.4 Absolute Neuts (auto) 3.4 Absolute Lymphs (auto) 0.8 L Absolute Monos (auto) 0.6 Absolute Eos (auto) 0.2 Absolute Basos (auto) 0.1 Absolute Nucleated RBC 0 Nucleated RBC % 0.1 Sodium 137 Potassium 3.9 Chloride 106 Carbon Dioxide 28 Anion Gap 3 BUN 5 L Creatinine 0.78 Est GFR ( Amer) 90.9 Est GFR (Non-Af Amer) 75.1 BUN/Creatinine Ratio 6.4 L Glucose 106 H POC Glucose (mg/dL) 111 H Calcium 8.2 L Magnesium 1.3 L Laboratory Tests 08/17/18 09/21/18 09/28/18 10:18 09:40 11:00 CA 19-9 Antigen 45376 H 1709 H 1017 H 10/11/18 12:10 CA 19-9 Antigen 537 H Assessment: []62 yo female with metastatic pancreatic cancer s/p C2 [place]/Abraxane admitted with ARNULFO 2/2 dehydration r/t intractable nausea and vomiting with slow improvement. Plan: []1. Nausea: concerning for disease progression d/t difficulty managing however her Ca 19-9 has been dropping nicely since starting current chemotherapy regimen (see trend above). - change zofran odt to ac, cont. PRN and reviewed asking for meds - discussed use of medical marijuana as adjunct on d/c, reviewed at length - cont. zofran, zyprexa, and ativan 2. Electrolyte abnormalities: replace Mg IV today and restart PO replacements, stop IV fluids and monitor I&Os 3. Diarrhea: cont. lomotil, reviewed asking for it after each loose stool 4. Weakness: PT eval. and treat 5. Cancer: appears to be having a response based on Ca 19-9, MRI negative for mets - based on her diagnosis if she decided to stop all therapy prognosis is 6 mo. and she would be a candidate for hospice, however at this time with on-going treatment I suspect this is closer to a year, however difficult to determine each individual course and her nutritional status may be a limiting factor. 6. Anxiety: on citalopram and PRN ativan, discussed that we could change around anti-depressant, but will pursue medical marijuana first Full Code Dispo: goal of home tomorrow
[2018-10-13] MEDS ORDERED: Ondansetron ODT TAB* 4 MG PO PRN (09:48)
[2018-10-13] MEDS: Ondansetron INJ* 2 MG/ML VIAL IV PRN (10:08)
[2018-10-13] MEDS: Lisinopril TAB* 10 MG PO SCH (10:46)
[2018-10-13] MEDS: amLODIPine TAB* 5 MG PO SCH (10:47)
[2018-10-13] MEDS: Citalopram TAB* 20 MG PO SCH (10:47)
[2018-10-13] MEDS: Metoprolol Succinate XL TAB* 25 MG PO SCH ×2 (10:47→22:30)
[2018-10-13] MEDS: Ondansetron ODT TAB* 4 MG SL SCH ×2 (11:55→15:56)
[2018-10-13] MEDS: Enoxaparin(*) 40 MG/0.4 ML SYR SUBCUT SCH (15:02)
[2018-10-13] MEDS: LORazepam TAB(*) 1 MG PO PRN (16:50)
[2018-10-13] MEDS: OLANzapine TAB*ODT* 5 MG PO SCH (22:30)
[2018-10-13] MEDS: Insulin GLARGINE(*) 1 UNITS UNIT SUBCUT SCH (22:31)
[2018-10-14] MEDS: Ondansetron ODT TAB* 4 MG SL SCH ×3 (08:00→17:06)
[2018-10-14] MEDS: Insulin LISPRO* 1 UNITS UNIT SUBCUT SCH ×4 (08:07→20:16)
[2018-10-14] MEDS: LORazepam TAB(*) 1 MG PO PRN (08:42)
[2018-10-14] MEDS ORDERED: LORazepam TAB(*) 1 MG PO ONE (10:39)
--- NOTE | 2018-10-14 10:50 | PN ---
Progress Note - Progress Note Date of Service: 10/14/18 SOAP: Subjective: [No improvement in symptoms. Still very nauseated. Tolerated some liquids and a few bites of eggs this morning. No abd pain. Reg BMs.] Objective: [ Amlodipine Besylate (Norvasc Tab*) 10 mg PO QAM [facility] Last Admin: 10/13/18 10:47 Dose: 10 mg Citalopram Hydrobromide (Celexa Tab*) 40 mg PO DAILY [facility] Dextrose (D50w Syringe 50 Ml*) 12.5 gm IV PUSH .FOR FS < 60 - SS PRN PRN Reason: FS < 60 Diphenoxylate HCl/Atropine (Lomotil Tab*) 1 tab PO QID PRN PRN Reason: DIARRHEA Last Admin: 10/12/18 08:35 Dose: 1 tab Enoxaparin Sodium (Lovenox(*)) 40 mg SUBCUT Q24H [facility] Last Admin: 10/13/18 15:02 Dose: 40 mg Heparin Sodium (Porcine) (Heparin Flush Port (Ivad)) 5 ml FLUSH DAILY [facility]; Protocol Last Admin: 10/13/18 15:03 Dose: 5 ml Insulin Glargine (Lantus(*)) 10 units SUBCUT 2100 [facility] Last Admin: 10/13/18 22:31 Dose: 10 units Insulin Human Lispro (Humalog*) 0 units SUBCUT ACHS [facility]; Protocol Last Admin: 10/14/18 08:07 Dose: Not Given Lisinopril (Prinivil Tab*) 30 mg PO DAILY [facility] Last Admin: 10/13/18 10:46 Dose: 30 mg Lorazepam (Ativan Tab(*)) 1 mg PO Q6H PRN PRN Reason: ANXIETY Last Admin: 10/14/18 08:42 Dose: 1 mg Metoprolol Succinate (Toprol Xl Tab*) 25 mg PO BID [facility] Last Admin: 10/13/18 22:30 Dose: 25 mg Olanzapine (Zyprexa Tab*) 10 mg PO BEDTIME [facility] Ondansetron HCl (Zofran Inj*) 4 mg IV Q4H PRN PRN Reason: NAUSEA Last Admin: 10/13/18 10:08 Dose: 4 mg Ondansetron HCl (Zofran Odt Tab*) 4 mg SL AC [facility] Last Admin: 10/14/18 08:00 Dose: 4 mg Ondansetron HCl (Zofran Odt Tab*) 4 mg PO Q6H PRN PRN Reason: NAUSEA Pancrelipase (Zenpep Delayed Cap*) 45,000 units PO TID AC PRN PRN Reason: FATTY MEAL Pantoprazole Sodium (Protonix Iv*) 40 mg IV DAILY [facility] Scopolamine (Transderm-Scop 1.5 Mg Patch*) 1 patch TRANSDERM Q72H [facility] Last Admin: 10/12/18 10:36 Dose: 1 patch Laboratory Results - last 24 hr 10/11/18 10/13/18 10/13/18 12:10 11:39 16:31 POC Glucose (mg/dL) 167 H 190 H CA 19-9 Antigen 537 H 10/13/18 10/14/18 21:44 08:02 POC Glucose (mg/dL) 188 H 101 H CA 19-9 Antigen Vital Signs: Temp Pulse Resp BP Pulse Ox 96.8 F 65 18 189/97 100 10/14/18 08:05 10/14/18 08:05 10/14/18 08:42 10/14/18 08:05 10/14/18 08:05 Exam: Gen: Chronically ill appearing 62 yo female in NAD HEENT: MMM CV: RRR, no m/r/g Resp: CTA, no w/c/r Abd: soft, hypoactive bowel sounds, nonTTP Ext: No edema [Assessment: []62 yo female with metastatic pancreatic cancer s/p C2 [place]braxane admitted with ARNULFO 2/2 dehydration r/t intractable nausea and vomiting with slow to limited improvement. Plan: []1. Nausea: - consider gastritis as a source of her continued symptoms - reports diarrhea with use of Carafate and omeprazole in the past - start IV Protonix and if effective can dc with po pantoprazole to see if that is better tolerated than the omeprazole - cont. zofran, zyprexa, and ativan (increased Zyprexa to 10 mg from 5mg) 2. Electrolyte abnormalities: - cont to monitor and replete as necessary 3. Diarrhea: - cont. lomotil prn 4. Weakness: - cont PT 5. Pancreatic Cancer: - appears to be having a response based on Ca 19-9, MRI brain negative for mets - scheduled to resume gemcitabine/abraxane next week whether we maintain this schedule will depend on symptom response 6. Anxiety: - increase citalopram to 40 mg daily and cont PRN ativan Full Code Dispo: goal of home tomorrow]
[2018-10-14] MEDS: Pantoprazole IV* 40 MG IV SCH (11:30)
[2018-10-14] MEDS: Ondansetron INJ* 2 MG/ML VIAL IV PRN (11:31)
[2018-10-14] MEDS: Lisinopril TAB* 10 MG PO SCH (11:38)
[2018-10-14] MEDS: Metoprolol Succinate XL TAB* 25 MG PO SCH ×2 (11:38→20:41)
[2018-10-14] MEDS: amLODIPine TAB* 5 MG PO SCH (11:38)
[2018-10-14] MEDS: Citalopram TAB* 20 MG PO SCH (11:40)
[2018-10-14] MEDS: Enoxaparin(*) 40 MG/0.4 ML SYR SUBCUT SCH (17:07)
[2018-10-14] MEDS: Insulin GLARGINE(*) 1 UNITS UNIT SUBCUT SCH (20:42)
[2018-10-14] MEDS ORDERED: OLANzapine TAB* 10 MG PO SCH (21:00)
[2018-10-15] MEDS: Insulin LISPRO* 1 UNITS UNIT SUBCUT SCH (07:50)
[2018-10-15] MEDS: Lisinopril TAB* 10 MG PO SCH (07:57)
[2018-10-15] MEDS: Pantoprazole IV* 40 MG IV SCH (07:57)
[2018-10-15 07:59] VITALS: BP 122/73
[2018-10-15] MEDS: Ondansetron ODT TAB* 4 MG SL SCH (08:02)
[2018-10-15] MEDS: amLODIPine TAB* 5 MG PO SCH (08:02)
[2018-10-15] MEDS: Metoprolol Succinate XL TAB* 25 MG PO SCH (08:02)
[2018-10-15] MEDS: Diphenoxylat/Atrop 2.5-0.025M* 1 TAB PO PRN (08:14)
[2018-10-15] MEDS ORDERED: Citalopram TAB* 20 MG PO SCH (09:00)
[2018-10-15] MEDS: Ondansetron INJ* 2 MG/ML VIAL IV PRN (10:03)
[2018-10-15] MEDS: Scopolamine 1.5 mg* PATCH TRANSDERM SCH (10:04)
== END 2018-10-15 11:00 | disposition home or self-care (01) | DRG 460 ==
LOC: MED 14:27
PROVIDERS: ADMIT Internal Medicine Hematology & Oncology; ATTEND Internal Medicine Hematology & Oncology
DX: N17.9 Acute kidney failure, unspecified (principal); C25.0 Malignant neoplasm of head of pancreas; C78.7 Secondary malignant neoplasm of liver and intrahepatic bile duct; E86.0 Dehydration; R11.2 Nausea with vomiting, unspecified; F41.9 Anxiety disorder, unspecified; R19.7 Diarrhea, unspecified; E11.9 Type 2 diabetes mellitus without complications; M17.0 Bilateral primary osteoarthritis of knee; M19.042 Primary osteoarthritis, left hand; M19.041 Primary osteoarthritis, right hand; K21.9 Gastro-esophageal reflux disease without esophagitis; E78.00 Pure hypercholesterolemia, unspecified; I10 Essential (primary) hypertension; E86.1 Hypovolemia; E83.42 Hypomagnesemia; E87.6 Hypokalemia; Z86.73 Personal history of transient ischemic attack (TIA), and cerebral infarction without residual deficits; Z79.4 Long term (current) use of insulin; Z79.82 Long term (current) use of aspirin; Z79.899 Other long term (current) drug therapy; Z91.041 Radiographic dye allergy status
CPT/HCPCS: 36415; 70551; 74176; 80048; 80053; 81003; 81015; 83735; 85025; 86301; 99222; 99232; 99233; 99239; A9270-GY; J1642; J1650; J2060; J2405; J2765; J3475

== ENCOUNTER 2018-12-25 09:00 | Emergency (ER) | payer BC ==
--- NOTE | 2018-12-25 09:05 | ED ---
Neurological HPI - HPI Summary HPI Summary: ED provider met EMS and patient at charge desk immediately upon arrival. A 63 y/o F brought in by ambulance presents to ED with c/o R-sided facial droop onset approx 20 minutes [employer]. Patient says she got of the tub and put cream on her face when she noticed the facial droop. She lives alone, so her last known well is unknown. Denies slurred speech and other neurological deficit. PMHx: DM , HTN, pancreatic CA. - History of Current Complaint Stated Complaint: STROKE SYMPTONS PER EMS Time Seen by Provider: 12/25/18 09:02 Hx Obtained From: Patient, EMS Onset/Duration: Started minutes ago, Still Present Timing: Constant Onset Severity: Moderate Current Severity: Moderate Associated Signs and Symptoms: Positive: Nothing - Additional Pertinent History Primary Care Physician: AMAURY - Allergy/Home Medications Allergies/Adverse Reactions: Allergies Allergy/AdvReac Type Severity Reaction Status Date / Time Iodinated Contrast- Oral and Allergy Intermediate Vomiting Verified 12/25/18 09: 15 IV Dye shellfish derived Allergy Intermediate Eyes Verified 12/25/18 09:15 Itchy/Swollen/Red/Watery Home Medications: Home Medications Magnesium Chloride EC TAB* [Slow Mag EC TAB*] 900 mg PO BID 12/25/18 [History Confirmed 12/25/18] OLANzapine TAB* [Zyprexa 10 MG TAB*] 10 mg PO BEDTIME PRN 12/25/18 [History Confirmed 12/25/18] Ondansetron ODT TAB* [Zofran 4 MG Odt TAB*] 4 mg SL AC PRN 12/25/18 [History Confirmed 12/25/18] Scopolamine 1.5 mg* PATCH* [Transderm-Scop 1.5 mg Patch*] 1 patch TRANSDERM Q72H PRN 12/25/18 [History Confirmed 12/25/18] PMH/Surg Hx/FS Hx/Imm Hx Previously Healthy: No Endocrine/Hematology History: Reports: Hx Blood Transfusions, 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 Cardiovascular History: Reports: Hx Hypertension, Other Cardiovascular Problems/ Disorders - port for pancreatic cancer Denies: Hx Congestive Heart Failure, Hx Pacemaker/ICD Respiratory History: Denies: Hx Asthma GI History: Reports: Hx Diverticulosis, Hx Gastroesophageal Reflux Disease, Hx Gastrointestinal Bleed, Hx Hiatal Hernia, Hx Jaundice, Other GI Disorders - COLONOSCOPY 02/2013 WITH BENIGN GROWTHS REMOVED History: Denies: Hx Dialysis, Hx Renal Disease Musculoskeletal History: Denies: Hx Rheumatoid Arthritis, Hx Osteoporosis Sensory History: Reports: Hx Cataracts, Hx Contacts or Glasses - reading glasses Denies: Hx Deafness, Hx Hearing Aid, Hx Hearing Problem Opthamlomology History: Reports: Hx Cataracts, Hx Contacts or Glasses - reading glasses Psychiatric History: Reports: Hx Anxiety, Hx Depression Denies: Hx Panic Disorder - Cancer History Cancer Type, Location and Year: pancreatic 2014. secondary liver CA Hx Chemotherapy: Yes - CHEMO TREATMENT ENDED IN JANUARY 2018 Hx Radiation Therapy: Yes - 2016 - Surgical History Surgery Procedure, Year, and Place[place] [facility] [place] [facility] [place] [facility] @ [facility]; Colonscopies 2X, polyps removal on the first colonoscopy done 03/2013 where patient experienced bleeding 18 days later, procedure done with a titanium clip. ( PER PT NOTED THT CLIP HAD SHED). LIVER BX 2016 X2 - Immunization History Date of Tetanus Vaccine: unknown Date of Influenza Vaccine: unk Infectious Disease History: Denies: Hx Clostridium Difficile, Hx Hepatitis, Hx Human Immunodeficiency Virus (HIV), Hx of Known/Suspected MRSA, Hx Shingles, Hx Tuberculosis, Hx Known/ Suspected VRE, Hx Known/Suspected VRSA, History Other Infectious Disease - Family History Known Family History: Positive: Diabetes, Other - CHF - Social History Occupation: Disabled Lives: Alone Alcohol Use: None Hx Substance Use: No Substance Use Type: Reports: None Hx Tobacco Use: No Smoking Status (MU): Never Smoked Tobacco Have You Smoked in the Last Year: No Review of Systems Negative: Fever Neurological: Other - pos: R-sided facial droop Negative: Slurred Speech All Other Systems Reviewed And Are Negative: Yes Physical Exam - Summary Physical Exam Summary: VITAL SIGNS: Reviewed. GENERAL: Patient is a well-developed and nourished FEMALE who is lying comfortable in the stretcher. Patient is not in any acute respiratory distress. HEAD AND FACE: No signs of trauma. No ecchymosis, hematomas or skull depressions. No sinus tenderness. EYES: PERRLA, EOMI x 2, No injected conjunctiva, no nystagmus. No photophobia. EARS: Hearing grossly intact. Ear canals and tympanic membranes are within normal limits. MOUTH: Oropharynx within normal limits. NECK: Supple, trachea is midline, no adenopathy, no JVD, no carotid bruit, no c- spine tenderness, neck with full ROM. No meningeal signs, no Kernig's or Brudzinskis signs. CHEST: Symmetric, no tenderness at palpation LUNGS: Clear to auscultation bilaterally. No wheezing or crackles. CVS: Regular rate and rhythm, S1 and S2 present, no murmurs or gallops appreciated. ABDOMEN: Soft, non-tender. No signs of distention. No rebound, no guarding, and no masses palpated. Bowel sounds are normal. EXTREMITIES: FROM in all major joints, no edema, no cyanosis or clubbing. NEURO: Alert and oriented x 3. R-sided facial droop. Speech is normal and follows commands. SKIN: Dry and warm GCS: 15 Triage Information Reviewed: Yes Vital Signs Reviewed: Yes - Niranjan Coma Scale Best Eye Response: 4 - Spontaneous Best Motor Response: 6 - Obeys Commands Best Verbal Response: 5 - Oriented Coma Scale Total: 15 Diagnostics - Laboratory Result Diagrams: 12/25/18 09:35 12/25/18 09:35 Lab Statement: Any lab studies that have been ordered have been reviewed, and results considered in the medical decision making process. - CT BRAIN CT Interpretation Completed By: Radiologist Summary of CT Findings: IMPRESSION: #. Mild involutional change and stigmata of chronic small vessel ischemic disease without change. #. Potential RIGHT maxillary sinusitis. ED provider has reviewed this report. - EKG 0815 Cardiac Rate: NL - 67 bpm EKG Rhythm: Sinus Rhythm Summary of EKG Findings: No ST elevation. 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: Both Correctly Best Gaze (Only Horizontal Eye Movement): Normal Visual Field Testing: No Visual Loss Facial Paresis-Pt to Smile & Close Eyes or Grimace Symmetry: Minor Paralysis - R -sided facial droop Motor Function - Right Arm: No Drift-Holds 10 Seconds Motor Function - Left Arm: No Drift-Holds 10 Seconds Motor Function - Right Leg: No Drift-Holds 10 Seconds Motor Function - Left Leg: No Drift-Holds 10 Seconds Limb Ataxia-Must be out of Proportion to Weakness Present: Absent Sensory (Use Pinprick to Test Arms/Legs/Trunk/Face): Normal Best Language (Describe Picture, Name Items): No Aphasia Dysarthria (Read Several Words): Normal Extinction and Inattention: No Abnormality Total Score: 1 Re-Evaluation - Re-Evaluation 1 Re-Evaluation Time: 11:55 Change: Improved Comment: Pt is feeling much better, ambulating in ED. Course/Dx - Course Assessment/Plan: Patient is a 64-year-old female who presents to the emergency department via ambulance with a chief complaint of right facial drooping. She noticed this facial drooping about 20 minutes ago when she was putting up make up in the face. She has no other upper or lower extremity weakness. The NIH score is only 1 secondary to the facial droop. Im more inclined to the patient has a Gibson palsy as opposed to stroke or TIA. However, the patient was sent to CT of the head but she elected first department. Head CT IMPRESSION : #. Mild involutional change and stigmata of chronic small vessel ischemic disease without change. #. Potential RIGHT maxillary sinusitis. Test results shows a what was a count of 3.1, hemoglobin and hematocrit decreased significant for chronic anemia. Patient is 132. 134, glucose 193, calcium 8.1, AST of 72 and total protein of 5.7. 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 Patient was given Valtrex and prednisone. I discussed all the findings and test results with the patient. Patient was instructed to return to the emergency room immediately if any of the symptoms return or worsens. Plan of care was discussed with the patient and understands and agrees. All questions were answered at patient satisfaction. There were no further complaints or concerns. Lung exam before discharge: CTA B/L. Good air exchange. No wheezing or crackles heard. CVS: S1 and S2 present. No murmurs appreciated. Patient is alert and oriented x 3. Patient is hemodynamically stable. Patient will be discharged home with follow up PCP in the next 2-3 days - Diagnoses Provider Diagnoses: Pratt's palsy Discharge - Sign-Out/Discharge Documenting (check all that apply): Patient Departure - D/C Patient Received Moderate/Deep Sedation with Procedure: No - Discharge Plan Condition: Stable Disposition: HOME Prescriptions: predniSONE TAB* [Deltasone 20 MG TAB*] 40 mg PO DAILY #8 tab ValACYclovir (*) [Valtrex 1 GM(*)] 1 gm PO BID #14 tab Patient Education Materials: Prednisone (By mouth), Valacyclovir (By mouth), Pratt Palsy (ED) Referrals: Aleksandra Decker MD [Primary Care Provider] - 3 Days Additional Instructions: Follow up with your primary care provider in 3 days. RETURN TO THE ED FOR ANY WORSENING OR NEW SYMPTOMS. - Billing Disposition and Condition Condition: STABLE Disposition: Home - Attestation Statements Document Initiated by Scribe: Yes Documenting Scribe: Latasha Meng Provider For Whom Thalia is Documenting (Include Credential): Dr. Sloan Cisse MD Scribe Attestation: Latasha Mcduffie scribed for Dr. Sloan Cisse MD on 12/25/18 at 1829. Scribe Documentation Reviewed: Yes Provider Attestation: The documentation as recorded by the Latasha hopper accurately reflects the service I personally performed and the decisions made by me, Dr. Sloan Cisse MD Status of Scribe Document: Viewed
[2018-12-25 09:57] LABS: ABS Basophils 0 10^3/ul (0-0.2); ABS Eosinophils 0.2 10^3/ul (0-0.6); ABS Lymphocytes 0.3 10^3/ul (1.0-4.8); ABS Monocytes 0 10^3/ul (0-0.8); ABS Neutrophils 2.5 10^3/ul (1.5-7.7); ABS Nucleated RBC 0 10^3/ul; Eosinophil % 7.2 %; Hematocrit 29 % (35-47); Hemoglobin 9.3 g/dl (12.0-16.0); Lymphocyte % 11.1 %; Mean Corpuscular HGB Conc 32 g/dl (31-36); Mean Corpuscular Hemoglobin 29 pg (27-31); Mean Corpuscular Volume 89 fL (80-97); Mean Platelet Volume 8.5 fL (7.4-10.4); Nucleated Red Blood Cells % 0; Platelet Count 132 10^3/ul (150-450); Red Blood Count 3.25 10^6/ul (4.00-5.40); Red Cell Distribution Width 17 % (10.5-15); White Blood Count 3.1 10^3/ul (3.5-10.8)
[2018-12-25 09:58] LABS: Activated Partial Thrombo Time 29.8 seconds (26.0-36.3)
[2018-12-25 10:05] LABS: ALT 72 U/L (7-52); AST 36 U/L (13-39); Albumin 3.3 g/dL (3.2-5.2); Albumin/Globulin Ratio 1.4 (1-3); Alkaline Phosphatase 90 U/L (34-104); Anion Gap 4 mmol/L (2-11); BUN/Creatinine Ratio 24.2 (8-20); Blood Urea Nitrogen 16 mg/dL (6-24); CO2 Carbon Dioxide 26 mmol/L (22-32); Calcium 8.1 mg/dL (8.6-10.3); Chloride 104 mmol/L (101-111); Cholesterol 102 mg/dL; EGFR African American 109.8 (>60); EGFR Non-African American 90.7 (>60); Globulin 2.4 g/dL (2-4); Glucose 193 mg/dL (70-100); HDL Cholesterol 45.9 mg/dL; LDL Cholesterol 39 mg/dL; Sodium 134 mmol/L (135-145); Total Protein 5.7 g/dL (6.4-8.9); Triglycerides 85 mg/dL
[2018-12-25 10:43] LABS: Alcohol < 10 mg/dL (<10)
[2018-12-25] MEDS ORDERED: ValACYclovir (*) 1 GM TAB PO ONE (10:52)
[2018-12-25] MEDS ORDERED: predniSONE TAB* 20 MG PO ONE (10:53)
[2018-12-25 11:16] LABS: Urine Appearance Clear; Urine Bacteria Absent (Absent); Urine Bilirubin Negative (Negative); Urine Blood 1+ (Negative); Urine Color Straw; Urine Glucose 1+(50 mg/dL) (Negative); Urine Ketones Negative (Negative); Urine Nitrite Negative (Negative); Urine Protein Negative (Negative); Urine Red Blood Cell Trace(0-2/hpf) (Absent); Urine Specific Gravity 1.008 (1.010-1.030); Urine Urobilinogen Negative (Negative); Urine White Blood Cell Trace(0-5/hpf) (Absent)
[2018-12-25 11:19] VITALS: BP 141/76
[2018-12-25 11:30] LABS: Barbiturates Urine Screen None Detected (None Detect); Benzodiazepine Urine Screen None Detected (None Detect); Urine Cannabinoids Screen None Detected (None Detect)
== END 2018-12-25 11:18 | disposition home or self-care (01) ==
LOC: ED 09:00
DX: G51.0 Bell's palsy (principal); E10.8 Type 1 diabetes mellitus with unspecified complications; I10 Essential (primary) hypertension; C25.9 Malignant neoplasm of pancreas, unspecified; K21.9 Gastro-esophageal reflux disease without esophagitis
CPT/HCPCS: 36415; 70450; 80053; 80061; 80307; 80320; 81003; 81015; 83605; 84484; 85025; 85610; 85730; 86618; 86850; 86900; 86901; 87086; 93005; 99284; A9270-GY; G0480; J7512